=== PATIENT | female | born 1955 | race Caucasian/White ===

== ENCOUNTER → 2017-06-11 | Outpatient (CLI) | payer MEDICAID, SELFPAY | PROVIDERS: Visit Provider Internal Medicine | DX: B18.2 Chronic viral hepatitis C (principal) | CPT/HCPCS: 76705 ==

== ENCOUNTER 2017-06-17 09:10 | Emergency (ER) | payer MEDICAID, SELFPAY | END 2017-06-17 12:27 | disposition home or self-care (01) | PROVIDERS: Emergency Provider Emergency Medicine; Family Provider Emergency Medicine; Visit Provider Emergency Medicine | DX: N13.30 Unspecified hydronephrosis (principal); F17.210 Nicotine dependence, cigarettes, uncomplicated; I10 Essential (primary) hypertension; E11.65 Type 2 diabetes mellitus with hyperglycemia; Z79.4 Long term (current) use of insulin; R56.9 Unspecified convulsions; J44.9 Chronic obstructive pulmonary disease, unspecified; Z79.899 Other long term (current) drug therapy; Z88.2 Allergy status to sulfonamides; Z88.6 Allergy status to analgesic agent | CPT/HCPCS: 74177; 80053; 80305; 81001; 85025; 96365; 96372; 96375; 99284; Q9967 ==

== ENCOUNTER 2017-06-22 10:03 | Observation (INO) | payer MEDICAID, SELFPAY ==
[2017-06-22 10:06] VITALS: BMI 33.6
--- NOTE | 2017-06-22 10:13 | XR_ITS ---
XR chest 2V CLINICAL INDICATION: ITS.REASON: chest pain ORDERING PHYSICIAN: Mimi Ortiz MD PATIENT AGE: 61 years COMPARISON: 12/27/2010 FINDINGS: Unremarkable cardiovascular structures. There is a right pericardial fat pad with increased density along right heart border. No lobar consolidation or collapse. There is a vague area of increased density in the right upper lobe overlying the first rib anteriorly and may be related to prominent rib in a may be confirmed with follow-up. Patchy area of infiltrate, fibrosis, or developing nodule also a consideration. No acute bony anomalies. IMPRESSION: 1. No definite acute finding. 2. Vague area of increased density in the right upper lobe overlying the first rib anteriorly and may be related to prominent rib end and may be confirmed with follow-up. Patchy area of infiltrate, fibrosis, or developing nodule also a consideration
[2017-06-22 10:17] VITALS: BP 203/91; RESP 18; TEMP 36.9; O2SAT 98; BMI 33.6
[2017-06-22 10:18] LABS: POC Glucose,Bedside 446 mg/dL
--- NOTE | 2017-06-22 10:28 | HMH.EDCP ---
ED Disposition Clinical Impression: Hypertensive urgency, Tobacco use, CAD (coronary artery disease), Diabetes 1.5, managed as type 1, Unstable angina pectoris Pneumonia Qualifiers: Laterality: right Lung location: upper lobe of lung Chest pain Qualifiers: Chest pain type: unspecified Qualified Code(s): R07.9 - Chest pain, unspecified Disposition: Still a Patient Condition on Discharge: Fair - Critical Care Critical Care Time: No Attestation: On , the high probability of a clinically significant, sudden or life threatening deterioration of the following system(s) required my full and direct attention, intervention and personal management. The time I documented below is in addition to time spent performing reported procedures but includes the following listed in this critical care notation. Vital system(s) involved:: Circulatory Failure, Central Nervous System, Metabolic Failure, Respiratory Failure, Renal Failure, Shock (Hemorrhage), Shock (Septic) Medical Decision Making Vital Signs: 06/22/17 10:17 Temperature 98.4 F Temperature Source Oral Respiratory Rate 18 Blood Pressure [203/] 203/91 Blood Pressure Mean [203/] 128 Blood Pressure Source [/] Automatic Cuff Blood Pressure Position [] Sitting 02 Sat by Pulse Oximetry 98 Oxygen Delivery Method Room Air - Lab Data Lab Results 06/22/17 10:08: POC Glucose 446 06/22/17 10:30: WBC 12.6 H, RBC 4.67, Hgb 13.9, Hct 40.9, MCV 87.7, MCH 29.8, MCHC 34.0, RDW 12.9, Plt Count 239, MPV 7.5, Neut % (Auto) 79.9, Lymph % (Auto) 15.5, [place] % (Auto) 2.9, Eos % (Auto) 1.4, Baso % (Auto) 0.3, Neut # (Auto) 10.1 H, Lymph # (Auto) 1.9, [place] # (Auto) 0.4, Eos # (Auto) 0.2, Baso # (Auto) 0.0 06/22/17 10:30: Sodium 133 L, Potassium 3.3 L, Chloride 97 L, Carbon Dioxide 25, Anion Gap 14.3, BUN 12, Creatinine 1.01, Estimated Creat Clear 87, Estimated GFR 56 L, Est GFR ( Amer) > 60, Glucose 395 H, Calcium 8.8, Total Bilirubin 0.2, AST 40 H, ALT 53, Alkaline Phosphatase 141 H, Total Creatine Kinase 173 H, CK-MB (CK-2) 2.4, CK-MB (CK-2) Rel Index 1.4, Troponin I < 0.02, Total Protein 7.4, Albumin 3.1 L, Globulin 4.3 H, Albumin/Globulin Ratio 0.7 L 06/22/17 10:31: D-Dimer 168 06/22/17 10:31: B-Natriuretic Peptide 5 Result diagrams: 06/22/17 10:30 06/22/17 10:30 Orders (Tests/Meds): ED MEDICATIONS Generic Name Dose Route Start Last Admin Trade Name Freq PRN Reason Stop Dose Admin Sodium Chloride 10 ml 06/22/17 10:24 Saline Flush 10ml Syringe IV 07/22/17 10:23 NEEDED PRN Maintain IV Site Discontinued Medications Generic Name Dose Route Start Last Admin Trade Name Freq PRN Reason Stop Dose Admin Aspirin 324 mg 06/22/17 10:08 Aspirin 81mg Chewable Tablet PO 06/22/17 10:09 ONCE ONE Aspirin 324 mg 06/22/17 10:52 06/22/17 11:04 Aspirin 81mg Chewable Tablet PO 06/22/17 10:53 324 mg ONCE ONE Administration Ceftriaxone Sodium 1 gm/ 50 mls @ 100 mls/hr 06/22/17 11:44 06/22/17 12:05 Sodium Chloride IV 06/22/17 12:13 100 mls/hr ONCE ONE Administration Nitroglycerin 0.4 mg 06/22/17 10:08 Nitrostat 0.4mg Sl Tablet SL 06/23/17 10:13 Q5MINP PRN Chest Pain Nitroglycerin 1 gm 06/22/17 10:26 06/22/17 11:07 Nitroglycerin 1 Inch Oint Udp TD 06/22/17 10:27 1 gm ONCE ONE Administration Sodium Chloride 0 ml 06/22/17 10:28 06/22/17 11:06 Sod Chloride 0.9% 1000ml Bag IV 06/22/17 10:29 1,000 ml BOLUS ONE Administration ORDERS Category Date Time Status ECG Request by /Reginald Stat Y 06/22/17 10:08 Ordered ECG Request by /Reginald Stat Y 06/22/17 10:13 Stop Req - Radiology Data #1 Image Reviewed: Yes I have reviewed radiologist's interpretation Preliminary Findings: Abnormal (RUL mass vs infiltrates, i gave her a copy for follow up and called her pcp Dr. Lynne. ) - ECG Data Tracing #1 NSR 98/minutes, base line artifact, poor r wave progres
--- NOTE | 2017-06-22 10:31 | ED_ITS ---
ED Disposition Clinical Impression: Hypertensive urgency, Tobacco use, CAD (coronary artery disease), Diabetes 1.5 , managed as type 1, Unstable angina pectoris Pneumonia Qualifiers: Laterality: right Lung location: upper lobe of lung Chest pain Qualifiers: Chest pain type: unspecified Qualified Code(s): R07.9 - Chest pain, unspecified Disposition: Still a Patient Condition on Discharge: Fair - Critical Care Critical Care Time: No Attestation: On , the high probability of a clinically significant, sudden or life threatening deterioration of the following system(s) required my full and direct attention, intervention and personal management. The time I documented below is in addition to time spent performing reported procedures but includes the following listed in this critical care notation. Vital system(s) involved:: Circulatory Failure, Central Nervous System, Metabolic Failure, Respiratory Failure, Renal Failure, Shock (Hemorrhage), Shock (Septic) Medical Decision Making Vital Signs: 06/22/17 10:17 Temperature 98.4 F Temperature Source Oral Respiratory Rate 18 Blood Pressure [203/] 203/91 Blood Pressure Mean [203/] 128 Blood Pressure Source [/] Automatic Cuff Blood Pressure Position [] Sitting 02 Sat by Pulse Oximetry 98 Oxygen Delivery Method Room Air - Lab Data Lab Results 06/22/17 10:08: POC Glucose 446 06/22/17 10:30: WBC 12.6 H, RBC 4.67, Hgb 13.9, Hct 40.9, MCV 87.7, MCH 29.8, MCHC 34.0, RDW 12.9, Plt Count 239, MPV 7.5, Neut % (Auto) 79.9, Lymph % (Auto) 15.5, [place] % (Auto) 2.9, Eos % (Auto) 1.4, Baso % (Auto) 0.3, Neut # (Auto) 10.1 H, Lymph # (Auto) 1.9, [place] # (Auto) 0.4, Eos # (Auto) 0.2, Baso # (Auto) 0.0 06/22/17 10:30: Sodium 133 L, Potassium 3.3 L, Chloride 97 L, Carbon Dioxide 25 , Anion Gap 14.3, BUN 12, Creatinine 1.01, Estimated Creat Clear 87, Estimated GFR 56 L, Est GFR ( Amer) > 60, Glucose 395 H, Calcium 8.8, Total Bilirubin 0.2, AST 40 H, ALT 53, Alkaline Phosphatase 141 H, Total Creatine Kinase 173 H, CK-MB (CK-2) 2.4, CK-MB (CK-2) Rel Index 1.4, Troponin I < 0.02, Total Protein 7.4, Albumin 3.1 L, Globulin 4.3 H, Albumin/Globulin Ratio 0.7 L 06/22/17 10:31: D-Dimer 168 06/22/17 10:31: B-Natriuretic Peptide 5 Result diagrams: 06/22/17 10:30 06/22/17 10:30 Orders (Tests/Meds): ED MEDICATIONS Generic Name Dose Route Start Last Admin Trade Name Freq PRN Reason Stop Dose Admin Sodium Chloride 10 ml 06/22/17 10:24 Saline Flush 10ml Syringe IV 07/22/17 10:23 NEEDED PRN Maintain IV Site Discontinued Medications Generic Name Dose Route Start Last Admin Trade Name Freq PRN Reason Stop Dose Admin Aspirin 324 mg 06/22/17 10:08 Aspirin 81mg Chewable Tablet PO 06/22/17 10:09 ONCE ONE Aspirin 324 mg 06/22/17 10:52 06/22/17 11:04 Aspirin 81mg Chewable Tablet PO 06/22/17 10:53 324 mg ONCE ONE Administration Ceftriaxone Sodium 1 gm/ 50 mls @ 100 mls/hr 06/22/17 11:44 06/22/17 12:05 Sodium Chloride IV 06/22/17 12:13 100 mls/hr ONCE ONE Administration Nitroglycerin 0.4 mg 06/22/17 10:08 Nitrostat 0.4mg Sl Tablet SL 06/23/17 10:13 Q5MINP PRN Chest Pain Nitroglycerin 1 gm 06/22/17 10:26 06/22/17 11:07 Nitroglycerin 1 Inch Oint Udp
[2017-06-22 10:41] LABS: Basophils % 0.3 % (0.1-2.0); Eosinophils # 0.2 K/mm3 (0.0-0.4); Eosinophils % 1.4 % (0.1-12.0); Hematocrit 40.9 % (37.0-47.0); Hemoglobin 13.9 g/dL (12.2-16.2); Lymphocytes # 1.9 K/mm3 (0.7-4.5); Lymphocytes % 15.5 K/mm3 (10-50); Mean Corpuscular Hemoglobin 29.8 pg (27.0-31.2); Mean Corpuscular Volume 87.7 fl (81-99); Mean Platelet Volume 7.5 fl (7.4-10.4); Monocytes # 0.4 K/mm3 (0.1-1.0); Monocytes % 2.9 % (1.7-9.3); Neutrophils # 10.1 K/mm3 (1.8-7.8); Neutrophils % 79.9 % (37.0-80.0); Platelet Count 239 K/mm3 (142-424); Red Blood Count 4.67 M/mm3 (4.20-5.40); Red Cell Distribution Width 12.9 % (11.5-17.5); White Blood Count 12.6 K/mm3 (4.8-10.8)
[2017-06-22 11:14] LABS: Alanine Aminotransferase 53 U/L (12-78); Albumin Level 3.1 gm/dL (3.4-5.0); Albumin/Globulin Ratio 0.7 (1.1-1.8); Alkaline Phosphatase 141 U/L (46-116); Anion Gap 14.3 mEq/L (5-15); Aspartate Amino Transferase 40 U/L (15-37); Bilirubin,Total 0.2 mg/dL (0.2-1.0); Blood Urea Nitrogen 12 mg/dL (7-18); CKMB Relative Index 1.4 U/L (0-4.0); Calcium 8.8 mg/dL (8.5-10.1); Carbon Dioxide 25 mmol/L (21.0-32.0); Chloride 97 mmol/L (98-107); Creatine Kinase 173 U/L (26-140); Creatine Kinase MB 2.4 mg/ml (0.0-3.6); Creatinine Clearance Estimated 87 mg/ml (0-300); Creatinine,Serum 1.01 mg/dL (0.55-1.02); Estimated Glomerular Filt Rate 56 ml/min (>60); GFR (African American) > 60 ML/MIN (>60); Globulin 4.3 gm/dl (1.3-3.2); Glucose 395 mg/dL (74-106); Potassium 3.3 mmoL/L (3.5-5.1); Sodium 133 mmol/L (136-145); Total Protein,Serum 7.4 gm/dL (6.4-8.2); Troponin I < 0.02 ng/ml (0.00-0.06)
--- NOTE | 2017-06-22 11:42 | PC.NURSE ---
DR. ZIMMER PAGEHomar
[2017-06-22 11:45] LABS: D-Dimer 168 (0-400)
[2017-06-22 12:30] LABS: Lactic Acid 1.9 mmol/L (0.4-2.0)
--- NOTE | 2017-06-22 12:45 | PC.NURSE ---
PT CONTINUES TO ASK FOR PAIN MEDICATION. RECEIVED ASA EARLIER FOR COMPLAINTS OF CHEST DISCOMFORT. PROVIDER INDICATED NO NEW ORDERS.
--- NOTE | 2017-06-22 13:53 | PC.NURSE ---
PT CONTINUES TO REQUEST PAIN MEDICATION. MD IS AWARE. NO NEW ORDERS
[2017-06-22 13:54] VITALS: BP 135/95; PULSE 85; RESP 20; O2SAT 99
--- NOTE | 2017-06-22 14:00 | PC.NURSE ---
WENT IN TO GIVE PT TYLENOL AND SHE REFUSED SAYING SHE COULD NOT TAKE IT. OFFERED PATIENT IBUPROFEN AND SHE ADVISED SHE WASN'T ABLE TO TAKE THAT EITHER.; MD NOTIFIED, NO NEW ORDERS GIVEN AT THIS TIME.
[2017-06-22 14:47] VITALS: BP 156/93; PULSE 74; RESP 20; O2SAT 98
--- NOTE | 2017-06-22 17:20 | PC.NURSE ---
called and checked bed status. still holding at this time, ordered dinner tray for pt
[2017-06-22 18:51] VITALS: BP 142/95; PULSE 102
[2017-06-22 20:07] LABS: Troponin I < 0.02 ng/ml (0.00-0.06)
[2017-06-22 20:24] VITALS: BP 145/77; PULSE 86; RESP 20; TEMP 36.7; O2SAT 100; BMI 35.2
[2017-06-22 20:40] VITALS: PULSE 74; RESP 16; O2SAT 100
[2017-06-22 20:43] VITALS: BMI 35.2
[2017-06-23] VITALS (24 sets, daily range): BP systolic 124–148; BP diastolic 58–96; PULSE 66–90; RESP 16–20; TEMP 36.4–36.8; O2SAT 91–100; BMI 34.9
--- NOTE | 2017-06-23 | IR_ITS ---
CARDIAC CATHETERIZATION DATE OF CATHETERIZATION:06/23/2017 3:10 PM PROCEDURES: 1. Left heart catheterization 2. Left ventriculogram 3. Selective coronary angiogram INDICATION FOR TEST: 1. Unstable angina 2. Risk factors for coronary artery disease Informed consent was obtained prior to the procedure. COMPLICATIONS: None ESTIMATED BLOOD LOSS: Less than 10 ml. TECHNIQUE: One percent lidocaine used to anesthetize the right anterior aspect of the wrist. The right radial artery was accessed via the Seldinger technique. A 6 [place] sheath was placed in the right radial artery. 2.5 mg of verapamil, 800 mcg of nitroglycerin and 5000 U Heparin were given through the arterial sheath. The trap catheter was also used to perform left heart catheterization and left ventriculography. At the end of the procedure the patient was transferred to the post-op holding area in stable condition for arterial sheath removal. ANGIOGRAPHIC RESULTS: 1. The left main artery normal 2. The left anterior descending artery has mild proximal 10-20% stenoses with mid vessel 10% stenoses 3. The circumflex artery is a nondominant vessel and has mild 10-20% stenoses in the mid segment and distal second obtuse marginal artery 4. The right coronary artery is a dominant vessel and has mid vessel 20% and distal 20% stenoses 5. The CERDA ventriculogram reveals normal 65% 6. The left ventricular end-diastolic pressure 10 to 15 mmHg IMPRESSION: 1. Mild nonobstructive coronary artery disease as described above 2. Normal ejection fraction 3. Normal to slightly elevated left ventricular end-diastolic pressure PLAN: 1. Medical management 2. Avoidance of tobacco products
[2017-06-23 03:05] LABS: Troponin I < 0.02 ng/ml (0.00-0.06)
--- NOTE | 2017-06-23 03:45 | PC.NURSE ---
PT STABLE THROUGHOUT THE NIGHT. REPORTS CONTINUED INTERMITTENT CHEST PAIN. SLEEPS MOST OF SHIFT. PT PLACED NPO IN CASE OF CARDIOLOGY CONSULT IN AM.
--- NOTE | 2017-06-23 06:02 | CA_ITS ---
PROCEDURE: 2-D M-mode and color Doppler study INDICATIONS FOR THE TEST: Chest pain+ COPD Heart Murmur Tobacco Smoking+ Palpitations+ Fatigue Syncope Edema Hypertension+Diabetes Mellitus Rheumatic Fever SOB+METZGER Obesity Hyperlipidemia Family History HD Additional History PATIENT INFORMATION HEIGHT: 65 WEIGHT:202 GENDER: Female B/P: 2-D/M-MODE INTERPRETATION: 2-D MEASUREMENTS OBSERVED VALUES IN CMS Right Ventricular Dimension (RVDd) 1.8 Interventricular Septum (Thickness)(IVsd) 0.9 Left Ventricular Internal Dimensions(LVIDd) 4.8 Left Ventricular Posterior Wall (Thickness)(LVPWd) 1.0 Aortic Root 3.2 Aortic Cusp Separation 2.1 Left Atrial Dimensions (LAD) 4.4 2D 1. Left atrium is mildly enlarged, left ventricle is normal size, there is mild concentric left ventricular hypertrophy, visually estimated ejection fraction 55% with no obvious regional wall motion abnormality. 2. The right atrium and right ventricle are normal size and contractility. 3. The aortic valve is minimally thickened and fibrosed. 4. The mitral and tricuspid valve are structurally normal. 5. The pulmonic valve is poorly visualized. 6. No significant pericardial effusion noted. DOPPLER INTERROGATION: Doppler interrogation of the aortic, mitral and tricuspid valvular presence of mild mitral and tricuspid regurgitation, tricuspid regurgitant jet velocity is insufficient for calculation of the right ventricular systolic pressure, grade 1 diastolic dysfunction seen with tissue Doppler evidence of raised left atrial pressure. CONCLUSION: 1. Mildly enlarged left atrium, normal left ventricular size, mild concentric left ventricular hypertrophy, visually estimated ejection fraction 55% with no obvious regional wall motion abnormality. Grade 1 diastolic dysfunction seen with tissue Doppler evidence of raised left atrial pressure. 2. Mild mitral and tricuspid regurgitation. 3. No significant pericardial effusion noted.
[2017-06-23 07:33] LABS: POC Glucose,Bedside 186 mg/dL
--- NOTE | 2017-06-23 08:22 | P.CONPHA_ITS ---
[facility] Pharmacy VTE Monitoring - Patient Demographics Admission date: 06/22/17 Report Date: 06/23/17 Time: 08:22 Allergies/Adverse Reactions: codeine [CODEINE] Allergy (Unknown, Verified 06/22/17 10:05) Sulfa (Sulfonamide Antibiotics) [SULFA (SULFONAMIDE ANTIBIOTICS)] Allergy ( Unknown, Verified 06/22/17 10:05) Height: 1.63 m Weight: 92.986 kg Patient Problems: Current Active Problems Pneumonia (Acute) Hypertensive urgency (Acute) Chest pain (Acute) Tobacco use (Acute) CAD (coronary artery disease) (Acute) Diabetes 1.5, managed as type 1 (Acute) Unstable angina pectoris (Acute) - VTE Risk Labs: VTE Related Lab Results Hgb 13.9 g/dL (12.2-16.2) 06/22/17 10:30 Hct 40.9 % (37.0-47.0) 06/22/17 10:30 Plt Count 239 K/mm3 (142-424) 06/22/17 10:30 BUN 12 mg/dL (7-18) 06/22/17 10:30 Creatinine 1.01 mg/dL (0.55-1.02) 06/22/17 10:30 Estimated Creat Clear 87 mg/ml (0-300) 06/22/17 10:30 Clinical Trial Participant: No - Prophylaxis Types of VTE Prophylaxis: TEDS Knee High
[2017-06-23 08:54] LABS: Chol/HDL Ratio 3.7 (1-3.5); Cholesterol 140 mg/dL (140-200); HDL Cholesterol 38 mg/dL (29-89); LDL Cholesterol 78 mg/dL (0-130); Triglycerides 122 mg/dL (30-200); VLDL Cholesterol 24 mg/dL (0-40)
--- NOTE | 2017-06-23 09:39 | HMH.HP ---
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 FEMUR RIGHT LEG FX, RIBS FX) - *Social History Educational Level: Attended Grade School Smoking Status: Current every day smoker Tobacco Type: cigarettes # Packs/Day (cigarettes): 1 #Yrs smoked (if former smoker): 50 Alcohol Intake: never Occupational Status: disabled Household Members: other - Psychiatric History Expresses thoughts of harming self/others: None Suicide Plan Description: No Plan *Family Hx:: Asthma, Cancer, Diabetes, Heart Attack, Hyperlipidemia, Hypertension, Kidney Disease, Stroke, Thyroid Disorder Review of Systems - Review of Systems Review of systems:: pertinent systems reviewed and negative unless documented below - Constitutional Reports fever(s), Reports lack of energy, Reports malaise - Eyes Denies change in vision - *Respiratory Reports cough, Reports shortness of breath - *Gastrointestinal Reports nausea, Denies coffee ground vomit - *Musculoskeletal Reports joint pain - Integumentary/Breasts Reports rash - *Neurologic Reports dizziness, Denies seizure-like activity Meds Home Medications Medication Instructions Recorded Confirmed Type Amlodipine Besylate [Norvasc 5mg 5 mg PO DAILY 06/22/17 06/22/17 History tablet] Cyclobenzaprine HCl 10 mg PO Q8HP PRN 06/22/17 06/22/17 History [Cyclobenzaprine 10mg Tab] Insulin Aspart [Novolog Flexpen] 8 units SQ TID 06/22/17 06/22/17 History Insulin Glargine,Hum.rec.anlog 15 unit SQ HS 06/22/17 06/22/17 History [Basaglar Kwikpen U-100] Loratadine [Claritin 10mg Tablet] 10 mg PO DAILY 06/22/17 06/22/17 History Oxycodone HCl [Oxycodone (IR) 5mg 5 mg PO DAILY 06/22/17 06/22/17 History Cap] glipiZIDE [Glucotrol] 5 mg PO BID 06/22/17 06/22/17 History hydroCHLOROthiazide [HCTZ 25mg 25 mg PO DAILY 06/22/17 06/22/17 History tab] Allergies Allergy/AdvReac Type Severity Reaction Status Date / Time codeine [CODEINE] Allergy Unknown Verified 06/22/17 10:05 Sulfa (Sulfonamide Allergy Unknown Verified 06/22/17 10:05 Antibiotics) [SULFA (SULFONAMIDE ANTIBIOTICS)] Exam Vital signs and Labs for Last 24 Hours: Temp Pulse Resp BP Pulse Ox 98.2 F 88 18 145/73 94 L 06/23/17 04:29 06/23/17 06:00 06/23/17 04:29 06/23/17 04:29 06/23/17 04:29 Cardiac Enzymes 06/22/17 06/23/17 Range/Units 19:45 02:30 Troponin I < 0.02 < 0.02 (0.00-0.06) ng/ml I & O for Last 24 hours: Intake & Output 06/20/17 06/21/17 06/22/17 06/23/17 11:59 11:59 11:59 11:59 Output Total 600 / 600 Balance -600 / -600 no acute distress - *Routine HEENT Exam Head: Present: normocephalic Eye: Present: PERRL ENT: Present: mucous membranes dry - *Routine Neck Exam Present: supple. Absent: JVD - *Routine Respiratory Exam Present: decreased breath sounds. Absent: respiratory distress - *Routine Cardiovascular Exam Present: RRR, murmur, S4 - *Routine Abdominal Exam Present: soft - *Routine Extremities Exam Absent: Kostas's sign - *Routine Skin Exam Present: intact - *Routine Neurological Exam Present: alert, oriented X3, CN II-XII intact. Absent: sensory deficit, motor deficit - Routine Psychiatric Exam Present: normal affect H&P: Result - Labs Labs: Cardiac Enzymes 06/22/17 06/23/17 Range/Units 19:45 02:30 Troponin I < 0.02 < 0.02 (0.00-0.06) ng/ml Assessment and Plan (1) Chest pain Current visit: Yes Status: Acute
--- NOTE | 2017-06-23 09:43 | P.HP_ITS ---
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 FEMUR RIGHT LEG FX, RIBS FX) - *Social History Educational Level: Attended Grade School Smoking Status: Current every day smoker Tobacco Type: cigarettes # Packs/Day (cigarettes): 1 #Yrs smoked (if former smoker): 50 Alcohol Intake: never Occupational Status: disabled Household Members: other - Psychiatric History Expresses thoughts of harming self/others: None Suicide Plan Description: No Plan *Family Hx:: Asthma, Cancer, Diabetes, Heart Attack, Hyperlipidemia, Hypertension, Kidney Disease, Stroke, Thyroid Disorder Review of Systems - Review of Systems Review of systems:: pertinent systems reviewed and negative unless documented below - Constitutional Reports fever(s), Reports lack of energy, Reports malaise - Eyes Denies change in vision - *Respiratory Reports cough, Reports shortness of breath - *Gastrointestinal Reports nausea, Denies coffee ground vomit - *Musculoskeletal Reports joint pain - Integumentary/Breasts Reports rash - *Neurologic Reports dizziness, Denies seizure-like activity Meds Home Medications Medication Instructions Recorded Confirmed Type Amlodipine Besylate [Norvasc 5mg 5 mg PO DAILY 06/22/17 06/22/17 History tablet] Cyclobenzaprine HCl 10 mg PO Q8HP PRN 06/22/17 06/22/17 History [Cyclobenzaprine 10mg Tab] Insulin Aspart [Novolog Flexpen] 8 units SQ TID 06/22/17 06/22/17 History Insulin Glargine,Hum.rec.anlog 15 unit SQ HS 06/22/17 06/22/17 History [Basaglar Kwikpen U-100] Loratadine [Claritin 10mg Tablet] 10 mg PO DAILY 06/22/17 06/22/17 History Oxycodone HCl [Oxycodone (IR) 5mg 5 mg PO DAILY 06/22/17 06/22/17 History Cap] glipiZIDE [Glucotrol] 5 mg PO BID 06/22/17 06/22/17 History hydroCHLOROthiazide [HCTZ 25mg 25 mg PO DAILY 06/22/17 06/22/17 History tab] Allergies Allergy/AdvReac Type Severity Reaction Status Date / Time codeine [CODEINE] Allergy Unknown Verified 06/22/17 10:05 Sulfa (Sulfonamide Allergy Unknown Verified 06/22/17 10:05 Antibiotics) [SULFA (SULFONAMIDE ANTIBIOTICS)] Exam Vital signs and Labs for Last 24 Hours: Temp Pulse Resp BP Pulse Ox 98.2 F 88 18 145/73 94 L 06/23/17 04:29 06/23/17 06:00 06/23/17 04:29 06/23/17 04:29 06/23/17 04:29 Cardiac Enzymes 06/22/17 06/23/17 Range/Units 19:45 02:30 Troponin I < 0.02 < 0.02 (0.00-0.06) ng/ml I & O for Last 24 hours: Intake & Output 06/20/17 06/21/17 06/22/17 06/23/17 11:59 11:59 11:59 11:59 Output Total 600 / 600 Balance -600 / -600 no acute distress - *Routine HEENT Exam Head: Present: normocephalic Eye: Present: PERRL ENT: Present: mucous membranes dry - *Routine N
--- NOTE | 2017-06-23 10:17 | HMH.CARDCON2 ---
History of Present Illness Consult date: 06/23/17 Requesting physician: Kobe Dyer Consult reason: chest pain Chief complaint: chest pain History of present illness: 61 yo WF with DM since age 8, >50 pack year tobacco use and HTN admitted for chest pain that started at rest. 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 The symptoms yesterday were worse and concerned her to the point of prompting ER visit. She was kept overnight, Troponins have returned normal and Cardiology consulted for evaluation. Review of Systems - *Cardiovascular Reports chest pain, Reports chest pain at rest, Reports chest pain with activity, Reports shortness of breath with activity - *Neurologic Reports dizziness, Denies seizure-like activity [facility] History Medical History: Reports:: Cancer (CERVICAL), Diabetes Mellitus Type 2 Denies:: MRSA Other Medical History: Reports: Arthritis Comment: Reportedly had a seizure many years ago without etiology. On no meds for prevention. Questionable [place] with subsequent cardiac cath, 2007, [place], [place] without need for intervention. Amputation: No Fractures: Yes (BILATERAL WRIST FX'S. FEMUR RIGHT LEG FX, RIBS FX) - *Social History Educational Level: Attended Grade School Smoking Status: Current every day smoker Tobacco Type: cigarettes # Packs/Day (cigarettes): 1 #Yrs smoked (if former smoker): 50 Alcohol Intake: never Occupational Status: disabled Household Members: other - Psychiatric History Expresses thoughts of harming self/others: None Suicide Plan Description: No Plan *Family Hx:: Asthma, Cancer, Diabetes, Heart Attack, Hyperlipidemia, Hypertension, Kidney Disease, Stroke, Thyroid Disorder Meds Home Medications Medication Instructions Recorded Confirmed Type Amlodipine Besylate [Norvasc 5mg 5 mg PO DAILY 06/22/17 06/22/17 History tablet] Cyclobenzaprine HCl 10 mg PO Q8HP PRN 06/22/17 06/22/17 History [Cyclobenzaprine 10mg Tab] Insulin Aspart [Novolog Flexpen] 8 units SQ TID 06/22/17 06/22/17 History Insulin Glargine,Hum.rec.anlog 15 unit SQ HS 06/22/17 06/22/17 History [Basaglar Kwikpen U-100] Loratadine [Claritin 10mg Tablet] 10 mg PO DAILY 06/22/17 06/22/17 History Oxycodone HCl [Oxycodone (IR) 5mg 5 mg PO DAILY 06/22/17 06/22/17 History Cap] glipiZIDE [Glucotrol] 5 mg PO BID 06/22/17 06/22/17 History hydroCHLOROthiazide [HCTZ 25mg 25 mg PO DAILY 06/22/17 06/22/17 History tab] Allergies Allergy/AdvReac Type Severity Reaction Status Date / Time codeine [CODEINE] Allergy Unknown Verified 06/22/17 10:05 Sulfa (Sulfonamide Allergy Unknown Verified 06/22/17 10:05 Antibiotics) [SULFA (SULFONAMIDE ANTIBIOTICS)] Exam Vital signs and Labs for Last 24 Hours: Temp Pulse Resp BP Pulse Ox 98.2 F 88 18 145/73 94 L 06/23/17 04:29 06/23/17 06:00 06/23/17 04:29 06/23/17 04:29 06/23/17 04:29 Cardiac Enzymes 06/22/17 06/23/17 Range/Units 19:45 02:30 Troponin I < 0.02 < 0.02 (0.00-0.06) ng/ml I & O for Last 24 hours: Intake & Output 06/20/17 06/21/17 06/22/17 06/23/17 11:59 11:59 11:59 11:59 Output Total 600 / 600 Balance -600 / -600 - *Routine Neck Exam Absent: JVD, carotid bruit - *Routine Respiratory Exam Present: decreased breath sounds. Absent: rales, rhonchi, wheezes - *Routine Cardiovascular Exam Present: RRR, murmur - *Routine Extremities Exam Present: pulses intact - *Routine Neurological Exam Present: alert, oriented X3, vision grossly intact, hearing grossly intact Results 06/22/17 10:30 06/22/17 10:30 Cardiac Enzymes 06/22/17 06/23/17 Range/Units 19:45 02:30 Troponin I < 0.02 < 0.02 (0.00-0.06) ng/ml Lipids 06/23/17 Range/Units 05:35 Triglycerides 122 (30-200) mg/dL Cholesterol 140 (140-200) mg/dL LDL Cholesterol 78 (0-130) mg/dL HDL Cholest
--- NOTE | 2017-06-23 10:21 | P.CONS_ITS ---
History of Present Illness Consult date: 06/23/17 Requesting physician: Kobe Dyer Consult reason: chest pain Chief complaint: chest pain History of present illness: 61 yo WF with DM since age 8, >50 pack year tobacco use and HTN admitted for chest pain that started at rest. 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 The symptoms yesterday were worse and concerned her to the point of prompting ER visit. She was kept overnight, Troponins have returned normal and Cardiology consulted for evaluation. Review of Systems - *Cardiovascular Reports chest pain, Reports chest pain at rest, Reports chest pain with activity , Reports shortness of breath with activity - *Neurologic Reports dizziness, Denies seizure-like activity [facility] History Medical History: Reports:: Cancer (CERVICAL), Diabetes Mellitus Type 2 Denies:: MRSA Other Medical History: Reports: Arthritis Comment: Reportedly had a seizure many years ago without etiology. On no meds for prevention. Questionable [place] with subsequent cardiac cath, 2007, [place], [place] without need for intervention. Amputation: No Fractures: Yes (BILATERAL WRIST FX'S. FEMUR RIGHT LEG FX, RIBS FX) - *Social History Educational Level: Attended Grade School Smoking Status: Current every day smoker Tobacco Type: cigarettes # Packs/Day (cigarettes): 1 #Yrs smoked (if former smoker): 50 Alcohol Intake: never Occupational Status: disabled Household Members: other - Psychiatric History Expresses thoughts of harming self/others: None Suicide Plan Description: No Plan *Family Hx:: Asthma, Cancer, Diabetes, Heart Attack, Hyperlipidemia, Hypertension, Kidney Disease, Stroke, Thyroid Disorder Meds Home Medications Medication Instructions Recorded Confirmed Type Amlodipine Besylate [Norvasc 5mg 5 mg PO DAILY 06/22/17 06/22/17 History tablet] Cyclobenzaprine HCl 10 mg PO Q8HP PRN 06/22/17 06/22/17 History [Cyclobenzaprine 10mg Tab] Insulin Aspart [Novolog Flexpen] 8 units SQ TID 06/22/17 06/22/17 History Insulin Glargine,Hum.rec.anlog 15 unit SQ HS 06/22/17 06/22/17 History [Basaglar Kwikpen U-100] Loratadine [Claritin 10mg Tablet] 10 mg PO DAILY 06/22/17 06/22/17 History Oxycodone HCl [Oxycodone (IR) 5mg 5 mg PO DAILY 06/22/17 06/22/17 History Cap] glipiZIDE [Glucotrol] 5 mg PO BID 06/22/17 06/22/17 History hydroCHLOROthiazide [HCTZ 25mg 25 mg PO DAILY 06/22/17 06/22/17 History tab] Allergies Allergy/AdvReac Type Severity Reaction Status Date / Time codeine [CODEINE] Allergy Unknown Verified 06/22/17 10:05 Sulfa (Sulfonamide Allergy Unknown Verified 06/22/17 10:05 Antibiotics) [SULFA (SULFONAMIDE ANTIBIOTICS)] Exam Vital signs and Labs for Last 24 Hours: Temp Pulse Resp BP Pulse Ox 98.2 F 88 18 145/73 94 L 06/23/17 04:29 06/23/17 06:00 06/23/17 04:29 06/23/17 04:29 06/23/17 04:29 Cardiac Enzymes 06/22/17 06/23/17 Range/Units 19:45 02:30 Troponin I < 0.02 < 0.02 (0.00-0.06) ng/ml I & O for Last 24 hours: Intake & Output 06/20/17 06/21/17 06/22/17 06/23/17 11:59 11:59 11:59 11:59 Output Total 600 / 600 Balance -600 / -600 - *Routine Neck E
--- NOTE | 2017-06-23 15:09 | CARE MANAGER ---
Magalis Miles was admitted (OBS) with a diagnosis chest pain. Her treatment plan will include IV fluids and investigative studies. CM staff will follow and assist.
--- NOTE | 2017-06-23 16:07 | SUR.PREOP ---
1430-patient brought down from 2nd floor via wheelchair. vss, pulses 2+, allens test a. Patient taken to lab.
[2017-06-23 18:25] LABS: POC Glucose,Bedside 192 mg/dL
[2017-06-23 18:25] LABS: POC Glucose,Bedside 205 mg/dL
--- NOTE | 2017-06-23 18:59 | PC.NURSE ---
pt has had no changes from previous assessment. traclet was removed at 1830 and telfa and tegaderm was placed on site. no bleeding noted. dressing is c/d/i. iv is patent and no s/s of infliltration. v/s stable. will continue to monitor condition.
[2017-06-24] VITALS (7 sets, daily range): BP systolic 118–154; BP diastolic 53–83; PULSE 76–94; RESP 11–21; TEMP 36.7–36.9; O2SAT 98–100
--- NOTE | 2017-06-24 03:58 | PC.NURSE ---
PT HAS RESTED WELL THIS SHIFT. SHE C/O EARLIER IN SHIFT OF BACK PAIN. PT DENIES ANY CHEST PAIN THIS AM. V/S HAVE REMAINED STABLE. PT HAS REMAINED NSR ON TELEMETRY. SHE HAS AMBULATED TO [facility] THIS SHIFT. MEDICATION ADMINISTERED PER AUG. PHARMACY CONTACTED FOR ADMINISTRATION/ MIXING OF ANTIBIOTIC AZITHROMYCIN. NO OTHER CONCERNS AT THIS TIME. WILL CONTINUE TO MONITOR.
--- NOTE | 2017-06-24 05:45 | PC.NURSE ---
DRESSING TO (R) RADIAL CATH SITE IS C/D/I. 4X4 AND TEG[address]M IN PLACE. NO HEMATOMA NOTED
[2017-06-24 08:02] LABS: POC Glucose,Bedside 183 mg/dL
--- NOTE | 2017-06-24 08:12 | HMH.CARDPN2 ---
Subjective PN (PG) Date: 06/24/17 (n) Time: 08:00 Principal diagnosis: chest pain Interval history: Cardiac cath with no significant CAD. Pt with hypertensive readings during cath. Irbesartan added yesterday. No complaints. PN Exam ([facility] Own[facility]) Vital signs: Temp Pulse Resp BP Pulse Ox 98.2 F 88 21 124/57 99 06/24/17 04:00 06/24/17 05:50 06/24/17 04:00 06/24/17 04:00 06/24/17 05:50 - Constitutional no acute distress - Routine Respiratory Exam Present: CTA bilaterally - Routine Cardiovascular Exam Present: RRR A/P Progress Note ([facility] Owned) (1) Unstable angina pectoris Status: Acute Assessment and plan: Chest pain not related to CAD. Likely due to uncontrolled BP. No further chest pain with improved BP control. Stressed need to continue to control DM and to stop smoking. OK for discharge from cardiology standpoint. Follow up in office in 1-2 wks. Current Visit: Yes (2) Tobacco use Status: Chronic Current Visit: Yes (3) Hypertension Status: Acute Current Visit: Yes (4) Hypokalemia Status: Acute Current Visit: Yes (5) Diabetes 1.5, managed as type 1 Status: Acute Current Visit: Yes (6) Pneumonia Status: Acute Current Visit: Yes
--- NOTE | 2017-06-24 08:15 | P.PN_ITS ---
Subjective PN (PG) Date: 06/24/17 (n) Time: 08:00 Principal diagnosis: chest pain Interval history: Cardiac cath with no significant CAD. Pt with hypertensive readings during cath. Irbesartan added yesterday. No complaints. PN Exam ([facility]) Vital signs: Temp Pulse Resp BP Pulse Ox 98.2 F 88 21 124/57 99 06/24/17 04:00 06/24/17 05:50 06/24/17 04:00 06/24/17 04:00 06/24/17 05:50 - Constitutional no acute distress - Routine Respiratory Exam Present: CTA bilaterally - Routine Cardiovascular Exam Present: RRR A/P Progress Note ([facility]) (1) Unstable angina pectoris Status: Acute Assessment and plan: Chest pain not related to CAD. Likely due to uncontrolled BP. No further chest pain with improved BP control. Stressed need to continue to control DM and to stop smoking. OK for discharge from cardiology standpoint. Follow up in office in 1-2 wks. Current Visit: Yes (2) Tobacco use Status: Chronic Current Visit: Yes (3) Hypertension Status: Acute Current Visit: Yes (4) Hypokalemia Status: Acute Current Visit: Yes (5) Diabetes 1.5, managed as type 1 Status: Acute Current Visit: Yes (6) Pneumonia Status: Acute Current Visit: Yes
--- NOTE | 2017-06-24 08:46 | PC.NURSE ---
REPORT HANDED OFF TO SAVANAH ANGLIN @ [phone]
[2017-06-24 08:55] LABS: POC Glucose,Bedside 240 mg/dL
[2017-06-24 08:55] LABS: POC Glucose,Bedside 201 mg/dL
--- NOTE | 2017-06-24 09:02 | HMH.DCSUM ---
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 and was seen in the ed and felt to have cap and has chest pain with hx of cad with htn and dm and tob use - she was admitted for card eval Objective Vital signs: Temp Pulse Resp BP Pulse Ox 98.4 F 94 H 20 154/83 99 06/24/17 08:00 06/24/17 08:00 06/24/17 08:00 06/24/17 08:00 06/24/17 08:00 - *Routine HEENT Exam Head: Present: normocephalic Eye: Present: PERRL ENT: Present: mucous membranes moist - *Routine Neck Exam Present: supple, full ROM - *Routine Respiratory Exam Present: wheezes - *Routine Cardiovascular Exam Present: RRR, Normal S1, Normal S2 - *Routine Abdominal Exam Present: soft, normoactive bowel sounds - *Routine Extremities Exam Present: full ROM - Routine Back/Spine/Pelvis Exam Back/Spine: Present: full ROM - *Routine Neurological Exam Present: alert, oriented X3 Results Labs on day of discharge: Labs from last 24 hours 06/24/17 06/23/17 06/23/17 06:26 22:08 17:07 POC Glucose 201 240 205 06/23/17 06/22/17 12:05 20:39 POC Glucose 192 183 Preliminary micro results at discharge 06/22/17 13:00 Blood Culture - Preliminary Blood NO GROWTH AFTER 24 HOURS 06/22/17 12:00 Blood Culture - Preliminary Blood NO GROWTH AFTER 24 HOURS Meds Home Medications Medication Instructions Recorded Confirmed Type Amlodipine Besylate [Norvasc 5mg 5 mg PO DAILY 06/22/17 06/22/17 History tablet] Cyclobenzaprine HCl 10 mg PO Q8HP PRN 06/22/17 06/22/17 History [Cyclobenzaprine 10mg Tab] Insulin Aspart [Novolog Flexpen] 8 units SQ TID 06/22/17 06/22/17 History Insulin Glargine,Hum.rec.anlog 15 unit SQ HS 06/22/17 06/22/17 History [Basaglar Kwikpen U-100] Loratadine [Claritin 10mg Tablet] 10 mg PO DAILY 06/22/17 06/22/17 History Oxycodone HCl [Oxycodone (IR) 5mg 5 mg PO DAILY 06/22/17 06/22/17 History Cap] glipiZIDE [Glucotrol] 5 mg PO BID 06/22/17 06/22/17 History hydroCHLOROthiazide [HCTZ 25mg 25 mg PO DAILY 06/22/17 06/22/17 History tab] Allergies Allergy/AdvReac Type Severity Reaction Status Date / Time codeine [CODEINE] Allergy Unknown Verified 06/22/17 10:05 Sulfa (Sulfonamide Allergy Unknown Verified 06/22/17 10:05 Antibiotics) [SULFA (SULFONAMIDE ANTIBIOTICS)] Disposition Disposition: Home, Self-Care
--- NOTE | 2017-06-24 14:01 | PC.NURSE ---
PROVIDER PLACED DISCHARGE ORDER AND PT INFORMED OF THIS DURING MORNING MED PASS. WHILE TRYING TO PRINT DISCHARGE PACKET, NOTED MESSAGE THAT STATES MED REC NOT COMPLETED. CONTACTED [facility] TO MAKE SURE THAT IT WAS NOT A SYSTEM PROBLEM. INFORMED IT WAS NOT KNOWN TO BE A PROBLEM AND TO CONTACT THE MD. BONG DAVIDSON CONTACTED AND STATED SHE WOULD TRY TO FIX SAID PROBLEM. AT 1030 PT STATES THAT HER RIDE IS HERE AND WILL LEAVE HER IF SHE DOESN'T GO RIGHT NOW. MD CALLED AND STATED SHE WOULD TRY TO GET TO IT WHEN SHE COULD. PT MADE AWARE OF THE FACT MD WAS WORKING ON IT AND SAID SHE WAS LEAVING. PT LEFT WITHOUT DISCHARGE INSTRUCTIONS OR OTHER PAPERWORK. PT WOULD NOT STAY TO SIGN AMA FORM. NEWS WIRE PHOTO OPERATOR INFORMED. PROBLEM FIXED IN PAPERWORK PER H.DIANELYS AT 1200. PATIENT CALLED APOLOGIZING ABOUT LEAVING AND STS SHE WILL BE BACK LATER WITH HER RIDE TO FISH AND WILDLIFE BIOLOGIST PAPERWORK.
--- NOTE | 2017-06-24 17:18 | PC.NURSE ---
PATIENT ON THE FLOOR AT THIS TIME TO RECEIVE PAPERWORK. THIS RN WENT OVER DC INSTRUCTIONS WITH PATIENT. 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 PRESCRIPTIONS CALLED INTO [facility] FOR PT. PT HAS F/U WITH DR. ZIMMER ON 06-28-17.
--- NOTE | 2017-07-08 10:38 | PC.NURSE ---
post procedure call made, pt did not answer, voicemail left for pt to call hospital with any questions/concerns
== END 2017-06-24 10:40 | disposition home or self-care (01) ==
LOC: ER 11:36 → ICU 06-23 07:08
PROVIDERS: Internal Medicine; Admitting Provider Emergency Medicine; Emergency Provider Emergency Medicine; Family Provider Emergency Medicine; PCP Emergency Medicine; Visit Provider Emergency Medicine
DX: J18.9 Pneumonia, unspecified organism (principal); E11.9 Type 2 diabetes mellitus without complications; Z72.0 Tobacco use; I25.110 Atherosclerotic heart disease of native coronary artery with unstable angina pectoris; I10 Essential (primary) hypertension
CPT/HCPCS: 36415; 71046; 80053; 80061; 82550; 82553; 82962; 83605; 83880; 84484; 85025; 85378; 87040; 93005; 93306; 93458; 94640; 94761; 99152; 99284; C1725; C1769; G0378; J0456; J1644; Q9967

== ENCOUNTER → 2017-07-28 10:43 | Outpatient (REF) | payer MEDICAID, SELFPAY ==
[2017-07-28 15:05] LABS: Amphetamine/Metha Screen,Urine Negative ng/mL (<1000); Barbiturates Screen,Urine Negative ng/mL (<200); Benzodiazepines Screen,Urine Negative ng/mL (200); Cannabinoid Screen,Urine Negative ng/mL (<50); Cocaine Screen,Urine Negative ng/g (<300); Methadone Screen,Urine Negative ng/mL (<300); Opiate Screen,Urine Negative ng/mL (<300); Phencyclidine Screen,Urine Negative ng/mL (<25)
== END ==
LOC: LAB 10:43
PROVIDERS: Visit Provider Emergency Medicine
DX: Z79.899 Other long term (current) drug therapy (principal)
CPT/HCPCS: 80305

== ENCOUNTER 2017-08-10 08:35 | Day surgery (SDC) | payer MEDICAID, SELFPAY ==
[2017-08-06 14:40] VITALS: BMI 35.1
[2017-08-10] VITALS (19 sets, daily range): BP systolic 134–178; BP diastolic 64–109; PULSE 62–81; RESP 14–22; TEMP 36.2–36.9; O2SAT 94–99
--- NOTE | 2017-08-10 | FL_ITS ---
FL urethrocystogram retro CLINICAL INDICATION: ORDERING PHYSICIAN: Florentino Durham MD PATIENT AGE: 61 years COMPARISON: CT scan of 06/17/2017 FINDINGS: 2 images submitted with the C-arm show contrast in the right renal collecting system with mild dilatation of the renal pelvicalyceal system and proximal ureter. Distal ureters not visualized. Fluoroscopy time: 43 seconds IMPRESSION: Mild ectasia right renal collecting system. The distal ureter is not visualized
--- NOTE | 2017-08-10 10:40 | HMH.ANESCL ---
[facility] Anesthesia Checklist - Patient Identification Patient Identification: Arm Band - Structural Data Admitted From: Home Planned Operative Procedure/s: cystoscopy with retrograde pyelogram Consent for Planned Operative Procedure(s) Verified: Yes Verified Documents: Surgical Consent, History and Physical - NPO Status Verified Time NPO: 00:00 - Additional verifications Anesthesia Reactions: No - Airway Assessment C-Spine Mobility Assessed: Yes TMJ Mobility Assessed: Yes Dentition: Dentures-good fit (upper) - Neurological Assessment Level of Consciousness: Awake, Alert - Anesthesia Plan Anesthesia Risk discussed: Yes ASA Class: III Anesthesia Type: General [facility] Anesthesia HX I have reviewed the patient's past medical history: Yes Medical History: Reports:: Asthma, Cancer (CERVICAL), Diabetes Mellitus Type 2, Hypertension Denies:: Diabetes Mellitus Type 1, MRSA, Seizures Other Medical History: Reports: Arthritis, Other (Hep c, hx seizures). Denies: Blood Transfusion Reaction Other Surgeries: Yes: Colonoscopy, Hysterectomy-Total, Other (WRIST) Amputation: No Fractures: Yes (BILATERAL WRIST FX'S. FEMUR RIGHT LEG FX, RIBS FX) *Family Hx:: Asthma, Cancer, Diabetes, Heart Attack, Hyperlipidemia, Hypertension, Kidney Disease, Stroke, Thyroid Disorder
--- NOTE | 2017-08-10 10:42 | P.PN_ITS ---
[facility] Anesthesia Record Part II Discharge Time: 11:05 Destination: [facility] PACU nurse assessment reviewed?: Yes Patient Condition:: Good Anesthesia Complications:: None
--- NOTE | 2017-08-10 10:42 | P.PN_ITS ---
[facility] Anesthesia Record Part I Intake, IV Amount: 900 Estimated blood loss (mL): 0 Urine output (mL): 0 Blood Pressure: 146/73 SaO2: 96 Pulse Rate: 80 Respiratory Rate: 16 Temperature: 98.5 F Patient is:: Drowsy, Stable Stable to PACU at:: 10:35
--- NOTE | 2017-08-10 10:42 | HMH.ANESII ---
[facility] Anesthesia Record Part II Discharge Time: 11:05 Destination: [facility] PACU nurse assessment reviewed?: Yes Patient Condition:: Good Anesthesia Complications:: None
--- NOTE | 2017-08-10 11:32 | HMH.OPNOTE ---
Date of procedure: 08/10/17 Pre-op Diagnosis:: Chronic cystitis with right hydronephrosis Post-op diagnosis:: other (Without obstruction) Procedure performed:: Cystoscopy with right retrograde pyelogram Surgeon:: Florentino Durham MD PROOF LOAD MECHANIC:: Sidney Melendez Anesthesia: GETA Estimated blood loss (mL): 0 Clinical Note:: Patient is 61 years of age with recurrent urinary tract infections. She had a CT scan which showed some slight right hydronephrosis. She presents today for cystoscopy and right retrograde pyelogram. Started on therapy 3 days ago for diverticulitis. Operative findings:: Chronic trigonitis no evidence of ureteral obstruction Operative note:: After satisfactory general anesthesia she was carefully placed in the dorsolithotomy position. Genital area was prepped and draped in standard fashion. 22 Croatian cystoscope sheath introduced. Letter was inspected with both 30 and 70? lenses. No evidence of vesico-enteric fistula or trigone area she had chronic bullous edema. Ureteral orifice ease were not involved. No significant cystocele. Contrast was injected up the right side. Course and contour the right ureter was unremarkable. She did have slight dilation from the bladder to the calyceal system. There was however no points of obstruction. She emptied promptly without hesitation. Bladder was drained and cystoscope removed. Patient was awakened and transferred to the postop area in stable condition Condition: stable Disposition: PACU (Placed on doxycycline 100 mg twice daily for 1 month. She will follow-up in one month and likely we will place her on suppressive doxycycline nightly for at least an additional month) Complications:: None
--- NOTE | 2017-08-10 11:38 | P.OP_ITS ---
Date of procedure: 08/10/17 Pre-op Diagnosis:: Chronic cystitis with right hydronephrosis Post-op diagnosis:: other (Without obstruction) Procedure performed:: Cystoscopy with right retrograde pyelogram Surgeon:: Florentino Durham MD NEEDLE BAR MOLDER:: Sidney Melendez Anesthesia: GETA Estimated blood loss (mL): 0 Clinical Note:: Patient is 61 years of age with recurrent urinary tract infections. She had a CT scan which showed some slight right hydronephrosis. She presents today for cystoscopy and right retrograde pyelogram. Started on therapy 3 days ago for diverticulitis. Operative findings:: Chronic trigonitis no evidence of ureteral obstruction Operative note:: After satisfactory general anesthesia she was carefully placed in the dorsolithotomy position. Genital area was prepped and draped in standard fashion. 22 Pashto cystoscope sheath introduced. Letter was inspected with both 30 and 70? lenses. No evidence of vesico-enteric fistula or trigone area she had chronic bullous edema. Ureteral orifice ease were not involved. No significant cystocele. Contrast was injected up the right side. Course and contour the right ureter was unremarkable. She did have slight dilation from the bladder to the calyceal system. There was however no points of obstruction. She emptied promptly without hesitation. Bladder was drained and cystoscope removed. Patient was awakened and transferred to the postop area in stable condition Condition: stable Disposition: PACU (Placed on doxycycline 100 mg twice daily for 1 month. She will follow-up in one month and likely we will place her on suppressive doxycycline nightly for at least an additional month) Complications:: None
--- NOTE | 2017-08-10 15:45 | SUR.PHASEI ---
FSBS taken in PACU, result [id number]
[2017-08-19 15:00] LABS: POC Glucose,Bedside 236 mg/dL (70-110)
[2017-08-19 15:00] LABS: POC Glucose,Bedside 280 mg/dL (70-110)
== END 2017-08-10 12:35 | disposition home or self-care (01) ==
LOC: OR 08:36
PROVIDERS: Family Provider Emergency Medicine; PCP Emergency Medicine; Visit Provider Urology
PROC: 0TJB8ZZ Inspection of Bladder, Via Natural or Artificial Opening Endoscopic (ICD-10-PCS; CPT 52000; principal; 2017-08-10 10:00)
DX: N30.30 Trigonitis without hematuria (principal); N13.30 Unspecified hydronephrosis
CPT/HCPCS: 52005; 74450; 82962; 96374; J2270; J2405; Q9967

== ENCOUNTER 2017-08-18 17:24 | Emergency (ER) | payer MEDICAID, SELFPAY ==
[2017-08-18 18:32] VITALS: BP 137/98; PULSE 90; RESP 20; TEMP 37; O2SAT 94; BMI 35.1
--- NOTE | 2017-08-18 19:13 | HMH.EDUTC ---
[facility] [place] Disposition Clinical Impression: Nausea & vomiting Qualifiers: Vomiting type: unspecified Vomiting Intractability: unspecified Qualified Code(s): R11.2 - Nausea with vomiting, unspecified Disposition: Home, Self-Care Condition on Discharge: Good Instructions: DI for Nausea -- Adult, DI for Vomiting -- Adult Additional Instructions: ? Drink extra fluids with and between meals. If you have difficulty drinking, try very small amounts of water or suck on ice chips. ? Avoid fruit juices, as these do not replace minerals and can actually increase diarrhea. ? Children and adults can use sports drinks to replenish electrolytes. Younger children and infants should use products formulated for children, like oral rehydration solutions. ? Eat food in small amounts and let your stomach recover. ? Get lots of rest. You may feel tired or weak. ? Check with your doctor before taking medications or giving them to children. Never give aspirin to children or teenagers with a viral illness. This can cause James syndrome, a potentially life-threatening condition. Prescriptions: Ondansetron [Zofran 4mg ODT] 4 mg PO Q8H #20 tab.rapdis Referrals: Kobe Dyer MD [Primary Care Provider] - Time of Disposition: 19:24 Medical Decision Making - Medical Records Medical records reviewed: Yes: I reviewed the patient's medical records. Vital Signs: 08/18/17 18:32 08/18/17 19:16 Temperature 98.6 F 98.6 F Temperature Source Temporal Artery Scan Pulse Rate 90 Pulse Rate [Right] 90 Respiratory Rate 20 20 Blood Pressure 138/99 Blood Pressure [Right Arm] 137/98 Blood Pressure Mean [Right Arm] 111 Blood Pressure Source [Right Arm] Automatic Cuff Blood Pressure Position [Right Arm] Sitting 02 Sat by Pulse Oximetry 94 L Oxygen Delivery Method Room Air Orders (Tests/Meds): ED MEDICATIONS Discontinued Medications Generic Name Dose Route Start Last Admin Trade Name Freq PRN Reason Stop Dose Admin Ondansetron HCl 8 mg 08/18/17 19:20 Zofran 4mg/2ml Vial IM 08/18/17 19:21 ONCE ONE - Shine Inquiry Pt receiving controlled substance: No Shine was queried for this patient: No - Reevaluation(s) Time: :18 Reevaluation #1: Patient no distress state that she came in to get some phenergan or zofran to help with nausea State that she has had several eppisodes of vomiting today and having a hard time keeping her medication down so she came in to get something for nausea to help so she can take her daily medication. State that several of her grandchildren recently had the stomach bug and thinks she may have it now too Time: 19:22 Reevaluation #3: Patient given zofran IM will reassess to make sure that it is helping with nausea prior to dc home [facility] [place] HPI - General Stated complaint: Vomiting, cough Mode of Arrival: Ambulatory Source of Information: Patient Limitations: No Limitations Description of Symptoms (Recalled from Triage Doc. by RN): POSITIVE FLU LAST WEEK, COUGH, CONGESTION X4 DAYS HEENT Symptoms (Recalled from RN notes): Yes Resp Symptoms (Recalled from RN notes): Yes Skin Symptoms (Recalled from RN notes): No MS Symptoms (Recalled from RN notes): No Functional Status (Recalled from RN notes): N - History of Present Illness Provider Complaint: Patient state that she was seen about a month ago and had pneumonia, state that a few weeks ago she had the flu. States that now she thinks she may have a stomach Virus She has been having nausea and vomiting for the last couple of days State that she had phenergan at home and took one last night and it helped but she is out today and has vomited several times today so her daughter brought her in to see if she could get something to help with her upset stomach - Related Data Home Medications Medication Instructions Recorded Confirmed Amlodipine Besylate [Norvasc 5mg 5 mg PO DAILY 06/22/17 08/10/17 tablet] Insulin Aspart [Novolog Flexpen] 8
[2017-08-18 19:16] VITALS: BP 138/99; PULSE 90; RESP 20; TEMP 37
--- NOTE | 2017-08-18 19:16 | ED_ITS ---
[facility] [place] Disposition Clinical Impression: Nausea & vomiting Qualifiers: Vomiting type: unspecified Vomiting Intractability: unspecified Qualified Code( s): R11.2 - Nausea with vomiting, unspecified Disposition: Home, Self-Care Condition on Discharge: Good Instructions: DI for Nausea -- Adult, DI for Vomiting -- Adult Additional Instructions: ? Drink extra fluids with and between meals. If you have difficulty drinking, try very small amounts of water or suck on ice chips. ? Avoid fruit juices, as these do not replace minerals and can actually increase diarrhea. ? Children and adults can use sports drinks to replenish electrolytes. Younger children and infants should use products formulated for children, like oral rehydration solutions. ? Eat food in small amounts and let your stomach recover. ? Get lots of rest. You may feel tired or weak. ? Check with your doctor before taking medications or giving them to children. Never give aspirin to children or teenagers with a viral illness. This can cause Mango?s syndrome, a potentially life-threatening condition. Prescriptions: Ondansetron [Zofran 4mg ODT] 4 mg PO Q8H #20 tab.rapdis Referrals: Kobe Dyer MD [Primary Care Provider] - Time of Disposition: 19:24 Medical Decision Making - Medical Records Medical records reviewed: Yes: I reviewed the patient's medical records. Vital Signs: 08/18/17 18:32 08/18/17 19:16 Temperature 98.6 F 98.6 F Temperature Source Temporal Artery Scan Pulse Rate 90 Pulse Rate [Right] 90 Respiratory Rate 20 20 Blood Pressure 138/99 Blood Pressure [Right Arm] 137/98 Blood Pressure Mean [Right Arm] 111 Blood Pressure Source [Right Arm] Automatic Cuff Blood Pressure Position [Right Arm] Sitting 02 Sat by Pulse Oximetry 94 L Oxygen Delivery Method Room Air Orders (Tests/Meds): ED MEDICATIONS Discontinued Medications Generic Name Dose Route Start Last Admin Trade Name Freq PRN Reason Stop Dose Admin Ondansetron HCl 8 mg 08/18/17 19:20 Zofran 4mg/2ml Vial IM 08/18/17 19:21 ONCE ONE - Shine Inquiry Pt receiving controlled substance: No Shine was queried for this patient: No - Reevaluation(s) Time: :18 Reevaluation #1: Patient no distress state that she came in to get some phenergan or zofran to help with nausea State that she has had several eppisodes of vomiting today and having a hard time keeping her medication down so she came in to get something for nausea to help so she can take her daily medication. State that several of her grandchildren recently had the stomach bug and thinks she may have it now too Time: 19:22 Reevaluation #3: Patient given zofran IM will reassess to make sure that it is helping with nausea prior to dc home [facility] [place] HPI - General Stated complaint: Vomiting, cough Mode of Arrival: Ambulatory Source of Information: Patient Limitations: No Limitations Description of Symptoms (Recalled from Triage Doc. by RN): POSITIVE FLU LAST WEEK, COUGH, CONGESTION X4 DAYS HEENT Symptoms (Recalled from RN notes): Yes Resp Symptoms (Recalled from RN notes): Yes Skin Symptoms (Recalled from RN notes): No MS Symptoms (Recalled from RN notes): No Functional Status (Recalled from RN notes): N - History of Present Illness Provider Complaint: Patient state that she was seen about a month ago and had pneumon
== END 2017-08-18 19:26 | disposition home or self-care (01) ==
PROVIDERS: Emergency Provider Nurse Practitioner; Family Provider Emergency Medicine; PCP Emergency Medicine
DX: R11.2 Nausea with vomiting, unspecified (principal); R05 Cough; Z72.0 Tobacco use
CPT/HCPCS: 99202

== ENCOUNTER → 2017-08-31 08:34 | Outpatient (CLI) | payer MEDICAID, SELFPAY ==
--- NOTE | 2017-08-31 08:38 | MM_ITS ---
MM Dig screening mamm BI w/CAD CAD Screening ORDERING PHYSICIAN : Kobe Dyer MD PATIENT AGE: 62 years GENDER: Female COMPARISON: Previous mammograms: [place] November 2015, October INDICATION: Routine screening. No hormones. No new complaints. Family history. Sister with breast cancer? 17 years? Age TECHNIQUE: Standard CC and MLO images were obtained. R2 CAD reviewed. FINDINGS: minimal scattered fibroglandular elements. Both breast with overall over lower density breast. Mild asymmetry is again noted with density at the superior left breast again observed similar to previous study CAD computer review highlights no areas of concern RIGHT BREAST:. Stable appearance. Follow-up in one year stable small intramammary lymph node at the deep breast MLO view. Unchanged since prior studies dating back to 2010 LEFT BREAST:Stable asymmetric glandular density superior left breast. Follow-up in one year IMPRESSION: Stable bilateral mammogram with no significant new findings. Follow-up in one year BI-RADS Category: 1 Negative RECOMMENDED FOLLOW-UP: 1YR - 1 YEAR FOLLOW-UP (A letter has been sent to the patient regarding results of the study.)
--- NOTE | 2017-08-31 11:01 | XR_ITS ---
XR chest 2V HISTORY: ITS.REASON: COUGH ORDERING PHYSICIAN: Kobe Dyer MD PATIENT AGE: 61 years COMPARISON: 06/22/2017 FINDINGS: The cardiomediastinal silhouette and pulmonary vascularity are within normal limits. The lungs are clear without infiltrates, suspicious nodules, or pleural effusions. The nodular opacity previously identified somewhat less apparent likely related to slight difference in positioning. A discrete nodule is not identified. Fat pad noted on the right as before No acute bony abnormalities. IMPRESSION: No acute finding
== END ==
PROVIDERS: Family Provider Emergency Medicine; PCP Emergency Medicine; Visit Provider Emergency Medicine
DX: Z12.31 Encounter for screening mammogram for malignant neoplasm of breast (principal)
CPT/HCPCS: 71046; 77067

== ENCOUNTER → 2017-08-31 09:31 | Outpatient (POV) | payer MEDICAID, SELFPAY | PROVIDERS: Family Provider Emergency Medicine; PCP Emergency Medicine; Visit Provider Internal Medicine | DX: Z00.00 Encounter for general adult medical examination without abnormal findings (principal) ==

== ENCOUNTER → 2017-09-24 10:06 | Outpatient (REF) | payer MEDICAID, SELFPAY ==
[2017-09-24 18:58] LABS: Amphetamine/Metha Screen,Urine Negative ng/mL (<1000); Barbiturates Screen,Urine Negative ng/mL (<200); Benzodiazepines Screen,Urine Negative ng/mL (200); Cannabinoid Screen,Urine Negative ng/mL (<50); Cocaine Screen,Urine Negative ng/g (<300); Methadone Screen,Urine Negative ng/mL (<300); Opiate Screen,Urine Negative ng/mL (<300); Phencyclidine Screen,Urine Negative ng/mL (<25)
== END ==
LOC: LAB 10:06
PROVIDERS: Visit Provider Emergency Medicine
DX: Z79.899 Other long term (current) drug therapy (principal)
CPT/HCPCS: 80305

== ENCOUNTER → 2017-10-22 11:01 | Outpatient (REF) | payer MEDICAID, SELFPAY ==
[2017-10-22 14:14] LABS: Amphetamine/Metha Screen,Urine Negative ng/mL (<1000); Barbiturates Screen,Urine Negative ng/mL (<200); Benzodiazepines Screen,Urine Negative ng/mL (200); Cannabinoid Screen,Urine Negative ng/mL (<50); Cocaine Screen,Urine Negative ng/g (<300); Methadone Screen,Urine Negative ng/mL (<300); Opiate Screen,Urine Negative ng/mL (<300); Phencyclidine Screen,Urine Negative ng/mL (<25)
== END ==
LOC: LAB 11:01
PROVIDERS: Visit Provider Emergency Medicine
DX: Z79.899 Other long term (current) drug therapy (principal)
CPT/HCPCS: 80305

== ENCOUNTER → 2017-12-29 15:01 | Outpatient (REF) | payer MEDICAID, SELFPAY ==
[2017-12-29 18:19] LABS: Amphetamine/Metha Screen,Urine Negative ng/mL (<1000); Barbiturates Screen,Urine Negative ng/mL (<200); Benzodiazepines Screen,Urine Positive ng/mL (<200); Cannabinoid Screen,Urine Negative ng/mL (<50); Cocaine Screen,Urine Negative ng/mL (<300); Methadone Screen,Urine Negative ng/mL (<300); Opiate Screen,Urine Positive ng/mL (<300); Phencyclidine Screen,Urine Negative ng/mL (<25)
[2018-01-12 20:21] LABS: Alprazolam Negative (Cutoff=100); Benzodiazepines Positive ng/mL (Cutoff=100); Clonazepam Negative (Cutoff=100); Flurazepam Negative (Cutoff=100); Lorazepam Negative (Cutoff=100); Midazolam Negative (Cutoff=100); Temazepam Positive (.); Triazolam Negative (Cutoff=100)
[2018-01-14 06:32] LABS: Opiates Negative ng/mL (Cutoff=100)
== END ==
LOC: LAB 15:01
PROVIDERS: Physician Assistant; Visit Provider Emergency Medicine
DX: Z79.899 Other long term (current) drug therapy (principal)
CPT/HCPCS: 80305; 80346; 80361; G0480

== ENCOUNTER → 2018-01-18 07:56 | Outpatient (CLI) | payer MEDICAID, SELFPAY ==
--- NOTE | 2018-01-18 07:57 | MR_ITS ---
MR lumbar spine wo con, MR 3-d myelogram/MRCP HISTORY: LBP. Leg pain and intermittent numbness and tingling. Symptoms XYRS. ITS.REASON: Back Pain ORDERING PHYSICIAN: Kobe Dyer MD PATIENT AGE: 62 years Comparison: 07/31/2016 TECHNIQUE: Standard multiplanar multiecho sequences are performed without contrast. 3-D MIP and myelographic images are also rendered and reviewed FINDINGS: There is normal alignment. The spinal cord ends at the L1 level. T12-L1: Unremarkable. L1-L2, L2-L3, and L3-L4 discs show mild circumferential disc bulging. There is mild facet and ligamentum flavum hypertrophy at L2-L3 and L3-L4. L4-L5: Concentric bulging disc along with facet and ligamentum flavum hypertrophy with moderate bilateral lateral recess narrowing and moderate bilateral foraminal narrowing. There is transverse narrowing of the canal measuring 8 mm from the facet and ligamentum flavum hypertrophy. Small right foraminal/lateral disc protrusion versus disc osteophyte complex is present causing foraminal narrowing on the right. L5-S1: Concentric bulging disc with a small broad-based central disc protrusion very slightly eccentric toward the left abutting the anteromedial aspect of the left S1 nerve root. There is moderate bilateral foraminal narrowing left greater than right. IMPRESSION: 1. Mild circumferential bulging discs from L3 to L4 with mild facet hypertrophy. 2. Concentric bulging disc at L4-L5 along with facet and ligamentum flavum hypertrophy with moderate bilateral lateral recess narrowing and moderate bilateral foraminal narrowing. There is transverse narrowing of the canal measuring 8 mm from the facet and ligamentum flavum hypertrophy. Small right foraminal/lateral disc protrusion versus disc osteophyte complex is present causing foraminal narrowing on the right. 3. Concentric bulging disc at L5-S1 with a small broad-based central disc protrusion very slightly eccentric toward the left abutting the anteromedial aspect of the left S1 nerve root. There is moderate bilateral foraminal narrowing left greater than right.
== END ==
PROVIDERS: Family Provider Emergency Medicine; PCP Emergency Medicine; Visit Provider Emergency Medicine
DX: M54.9 Dorsalgia, unspecified (principal)
CPT/HCPCS: 72148; 76376

== ENCOUNTER → 2018-01-28 09:19 | Outpatient (REF) | payer MEDICAID, SELFPAY ==
[2018-01-28 14:17] LABS: Amphetamine/Metha Screen,Urine Negative ng/mL (<1000); Barbiturates Screen,Urine Negative ng/mL (<200); Benzodiazepines Screen,Urine Positive ng/mL (<200); Cannabinoid Screen,Urine Negative ng/mL (<50); Cocaine Screen,Urine Negative ng/mL (<300); Methadone Screen,Urine Negative ng/mL (<300); Opiate Screen,Urine Negative ng/mL (<300); Phencyclidine Screen,Urine Negative ng/mL (<25)
== END ==
LOC: LAB 09:19
PROVIDERS: Visit Provider Emergency Medicine
DX: M54.9 Dorsalgia, unspecified (principal)
CPT/HCPCS: 80305

== ENCOUNTER → 2018-02-28 11:16 | Outpatient (REF) | payer MEDICAID, SELFPAY ==
[2018-02-28 16:10] LABS: Amphetamine/Metha Screen,Urine Positive ng/mL (<1000); Barbiturates Screen,Urine Negative ng/mL (<200); Benzodiazepines Screen,Urine Positive ng/mL (<200); Cannabinoid Screen,Urine Negative ng/mL (<50); Cocaine Screen,Urine Negative ng/mL (<300); Methadone Screen,Urine Negative ng/mL (<300); Opiate Screen,Urine Positive ng/mL (<300); Phencyclidine Screen,Urine Negative ng/mL (<25)
[2018-03-14 00:13] LABS: Amphetamines Negative (Cutoff=500)
[2018-03-16 10:15] LABS: Alprazolam Negative (Cutoff=100); Benzodiazepines Positive ng/mL (Cutoff=100); Clonazepam Negative (Cutoff=100); Flurazepam Negative (Cutoff=100); Lorazepam Negative (Cutoff=100); Midazolam Negative (Cutoff=100); Temazepam Positive (.); Triazolam Negative (Cutoff=100)
== END ==
LOC: LAB 11:16
PROVIDERS: Physician Assistant; Visit Provider Nurse Practitioner Family
DX: Z79.899 Other long term (current) drug therapy (principal)
CPT/HCPCS: 80305; 80324; 80346

== ENCOUNTER → 2018-03-30 10:45 | Outpatient (REF) | payer MEDICAID, SELFPAY ==
[2018-03-30 14:30] LABS: Amphetamine/Metha Screen,Urine Negative ng/mL (<1000); Barbiturates Screen,Urine Negative ng/mL (<200); Benzodiazepines Screen,Urine Positive ng/mL (<200); Cannabinoid Screen,Urine Negative ng/mL (<50); Cocaine Screen,Urine Negative ng/mL (<300); Methadone Screen,Urine Negative ng/mL (<300); Opiate Screen,Urine Negative ng/mL (<300); Phencyclidine Screen,Urine Negative ng/mL (<25)
[2018-04-01 19:16] LABS: Microalbumin, Urine 3.9 ug/mL (Not Estab.)
== END ==
LOC: LAB 10:45
PROVIDERS: Visit Provider Emergency Medicine
DX: Z79.899 Other long term (current) drug therapy (principal); B19.20 Unspecified viral hepatitis C without hepatic coma; E11.9 Type 2 diabetes mellitus without complications
CPT/HCPCS: 80305; 82043

== ENCOUNTER → 2018-04-04 10:00 | Outpatient (POV) | payer MEDICAID, SELFPAY ==
[2018-04-04 10:11] VITALS: BP 172/79; PULSE 86; RESP 18; O2SAT 98
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
== END ==
PROVIDERS: Family Provider Emergency Medicine; PCP Emergency Medicine; Visit Provider Clinical Nurse Specialist Family Health
DX: M51.16 Intervertebral disc disorders with radiculopathy, lumbar region (principal)
CPT/HCPCS: 99202

== ENCOUNTER → 2018-04-05 08:56 | Outpatient (REF) | payer MEDICAID, SELFPAY ==
[2018-04-05 14:27] LABS: Amphetamine/Metha Screen,Urine Negative ng/mL (<1000); Barbiturates Screen,Urine Negative ng/mL (<200); Benzodiazepines Screen,Urine Negative ng/mL (<200); Cannabinoid Screen,Urine Negative ng/mL (<50); Cocaine Screen,Urine Negative ng/mL (<300); Methadone Screen,Urine Negative ng/mL (<300); Opiate Screen,Urine Negative ng/mL (<300); Phencyclidine Screen,Urine Negative ng/mL (<25)
== END ==
LOC: LAB 08:56
PROVIDERS: Visit Provider Emergency Medicine
DX: Z79.899 Other long term (current) drug therapy (principal)
CPT/HCPCS: 80305

== ENCOUNTER → 2018-04-19 13:29 | Outpatient (CLI) | payer MEDICAID, SELFPAY ==
[2018-04-19 14:36] LABS: Amphetamine/Metha Screen,Urine Negative ng/mL (<1000); Barbiturates Screen,Urine Negative ng/mL (<200); Benzodiazepines Screen,Urine Negative ng/mL (<200); Cannabinoid Screen,Urine Negative ng/mL (<50); Cocaine Screen,Urine Negative ng/mL (<300); Methadone Screen,Urine Negative ng/mL (<300); Opiate Screen,Urine Negative ng/mL (<300); Phencyclidine Screen,Urine Negative ng/mL (<25)
== END ==
PROVIDERS: PCP Emergency Medicine; Visit Provider Emergency Medicine
DX: Z79.899 Other long term (current) drug therapy (principal)
CPT/HCPCS: 80305

== ENCOUNTER → 2018-05-18 19:23 | Outpatient (CLI) | payer MEDICAID, SELFPAY ==
[2018-05-18 19:52] LABS: Anion Gap 13.4 mEq/L (5-15); Blood Urea Nitrogen 12 mg/dL (7-18); Calcium 9.7 mg/dL (8.5-10.1); Carbon Dioxide 30 mmol/L (21.0-32.0); Chloride 96 mmol/L (98-107); Creatinine,Serum 1.16 mg/dL (0.55-1.02); Estimated Glomerular Filt Rate 48 ml/min (>60); GFR (African American) 58 ML/MIN (>60); Glucose 241 mg/dL (74-106); Potassium 4.4 mmoL/L (3.5-5.1); Sodium 135 mmol/L (136-145)
[2018-05-18 19:55] LABS: Basophils # 0.1 K/mm3 (0-0.2); Basophils % 0.6 % (0.1-2.0); Eosinophils # 0.2 K/mm3 (0.0-0.4); Eosinophils % 1.6 % (0.1-12.0); Hematocrit 44.7 % (37.0-47.0); Hemoglobin 14.8 g/dL (12.2-16.2); Lymphocytes # 3.7 K/mm3 (0.7-4.5); Lymphocytes % 40.5 % (10-50); Mean Corpuscular HGB Conc 33.2 g/dL (31.8-35.4); Mean Corpuscular Hemoglobin 29.4 pg (27.0-31.2); Mean Corpuscular Volume 88.5 fl (81-99); Mean Platelet Volume 8.2 fl (7.4-10.4); Monocytes # 0.4 K/mm3 (0.1-1.0); Monocytes % 3.8 % (1.7-9.3); Neutrophils # 4.9 K/mm3 (1.8-7.8); Neutrophils % 53.5 % (37.0-80.0); Platelet Count 298 K/mm3 (142-424); Red Blood Count 5.05 M/mm3 (4.20-5.40); Red Cell Distribution Width 13.7 % (11.5-17.5); White Blood Count 9.1 K/mm3 (4.8-10.8)
[2018-05-18 21:53] LABS: Amphetamine/Metha Screen,Urine Negative ng/mL (<1000); Barbiturates Screen,Urine Negative ng/mL (<200); Benzodiazepines Screen,Urine Negative ng/mL (<200); Cannabinoid Screen,Urine Negative ng/mL (<50); Cocaine Screen,Urine Negative ng/mL (<300); Methadone Screen,Urine Negative ng/mL (<300); Opiate Screen,Urine Negative ng/mL (<300); Phencyclidine Screen,Urine Negative ng/mL (<25)
== END ==
PROVIDERS: Visit Provider Emergency Medicine
DX: I10 Essential (primary) hypertension (principal); Z79.899 Other long term (current) drug therapy
CPT/HCPCS: 80048; 80305; 83036; 85025

== ENCOUNTER 2018-10-28 16:34 | Observation (INO) ==
--- NOTE | 2018-10-28 17:22 | Emergency Department Note ---
ED Disposition Clinical Impression: Pneumonia Qualifiers: Pneumonia type: due to unspecified organism Laterality: right Lung location: middle lobe of lung Qualified Code(s): J18.1 - Lobar pneumonia, unspecified organism Disposition: Admitted As Inpatient Condition on Discharge: Good Referrals: Kobe Dyer MD [Primary Care Provider] - - Critical Care Critical Care Time: No Attestation: On , the high probability of a clinically significant, sudden or life threatening deterioration of the following system(s) required my full and direct attention, intervention and personal management. The time I documented below is in addition to time spent performing reported procedures but includes the fol lowing listed in this critical care notation. Medical Decision Making - Medical Records Medical records reviewed: Yes: I reviewed the patient's medical records. - Shine Inquiry Pt receiving controlled substance: No Vital Signs: 10/28/18 17:14 10/28/18 18:00 10/28/18 18:03 Temperature 98.4 F 99.3 F Temperature Source Oral Oral Pulse Rate 95 H Pulse Rate [Left Radial] 109 H Respiratory Rate 20 Blood Pressure [Right Arm] 179/79 H Blood Pressure Mean [Right Arm] 112 Blood Pressure Source [Right Arm] Automatic Cuff Blood Pressure Position [Right Arm] Sitting 02 Sat by Pulse Oximetry 96 Oxygen Delivery Method Room Air 10/28/18 18:09 Temperature Temperature Source Pulse Rate Pulse Rate [Left Radial] 98 H Respiratory Rate 22 Blood Pressure [Right Arm] 151/79 H Blood Pressure Mean [Right Arm] 103 Blood Pressure Source [Right Arm] Automatic Cuff Blood Pressure Position [Right Arm] Sitting 02 Sat by Pulse Oximetry 96 Oxygen Delivery Method Room Air - Lab Data Lab Results 10/28/18 17:05: WBC 10.7, RBC 4.07 L, Hgb 12.4, Hct 35.1 L, MCV 86.2, MCH 30.4, MCHC 35.2, RDW 13.4, Plt Count 268, MPV 7.1 L, Neut % (Auto) 63.0, Lymph % (Auto) 30.6, [place] % (Auto) 4.5, Eos % (Auto) 1.4, Baso % (Auto) 0.6, Neut # (Auto) 6.7, Lymph # (Auto) 3.3, [place] # (Auto) 0.5, Eos # (Auto) 0.2, Baso # (Auto) 0.1 10/28/18 17:05: Sodium 134 L, Potassium 3.0 L, Chloride 96 L, Carbon Dioxide 29, Anion Gap 12.0, BUN 12, Creatinine 1.02, Estimated Creat Clear 85, Estimated GFR 55 L, Est GFR ( Amer) 67, Glucose 257 H, Calcium 8.3 L, Total Bilirubin 0.5, AST 58 H, ALT 83 H, Alkaline Phosphatase 110, Troponin I < 0.02, Total Protein 8.3 H, Albumin 3.4, Globulin 4.9 H, Albumin/Globulin Ratio 0.7 L 10/28/18 17:05: Lactate 1.3 10/28/18 17:05: D-Dimer 601 H* Result diagrams: 10/28/18 17:05 10/28/18 17:05 Orders (Tests/Meds): ED MEDICATIONS Generic Name Dose Route Start Last Admin Trade Name Freq PRN Reason Stop Dose Admin Levofloxacin/Dextrose 500 mg in 100 mls @ 100 mls/hr 10/28/18 17:15 10/28/18 17:52 Levaquin 500mg/100ml Premix IV 11/11/18 17:14 100 mls/hr Q24H LEIDY Administration Protocol Sodium Chloride 500 mls @ 999 mls/hr 10/28/18 19:00 10/28/18 18:56 Sod Chlor 0.9% 1000ml Bag IV 10/28/18 19:30 999 mls/hr .Q31M LEIDY Administration Discontinued Medications Generic Name Dose Route Start Last Admin Trade Name Freq PRN Reason Stop Dose Admin Albuterol/Ipratropium 3 ml 10/28/18 17:14 10/28/18 17:55 Duoneb 3ml Neb IH 10/28/18 17:15 3 ml ONCE ONE Administration Ketorolac Tromethamine 30 mg 10/28/18 17:58 10/28/18 18:10 Toradol 30mg/Ml Vial IV 10/28/18 17:59 30 mg ONCE ONE Administration Potassium Chloride 20 meq 10/28/18 18:17 10/28/18 18:36 Klor-Con 20meq Tablet PO 10/28/18 18:18 20 meq ONCE ONE Administration Sodium Chloride 100 ml 10/28/18 18:52 10/28/18 18:53 Rad-Sod Chloride 0.9% 250ml IV 10/28/18 18:53 100 ml ONCE ONE Administration ORDERS Category Date Time Status CTA Chest [CT angio chest] Stat Cat Scan 10/28/18 18:17 Taken Blood Culture Stat Micro 10/28/18 17:05 Received ECG Request by /Reginald Stat Y 10/28/18 17:14 Ordered - CT Data CT Scan: Chest Time Received: 19:38 (no pe, +rml infil, right lung nodule) ED CT Reviewed: Yes: I have viewed the radiologist's interpretation - ECG Data Tracing #1 I reviewed this ECG and interpreted as documented below: ECG initial impression time: 19:39 Medical Decision Narrative: admit d/w Dr Frausto General Adult HPI - General Stated complaint: SOA, Wet Cough, Upper Abd Pain, Poss cyst on thigh Time Seen by Provider: 10/28/18 17:16 Source of Information: Patient - History of Present Illness HPI narrative: mild to mod off and on congested cough for one week getting worse, with green sput and short of breath, no fever, no emesis, hx recent rupture and draining right groin abcess, speech fluent - Related Data Home Medications Medication Instructions Recorded Confirmed polyethylene glycol 3350 17 17 g PO DAILY 10/24/18 10/28/18 gram/dose oral powder [Novolog Mix 70-30FlexPen U-100] 8 unit SUB-Q TID 10/28/18 10/28/18 Amlodipine Besylate [Amlodipine 10 mg PO DAILY 10/28/18 10/28/18 10mg Tab] Atorvastatin Calcium [Atorvastatin 10 mg PO DAILY 10/28/18 10/28/18 10mg Tab] Blood Sugar Diagnostic [OneTouch See Dose Instructions units .ROUTE 10/28/18 10/28/18 Ultra Blue Test Strip] .MEDSUPPLY Budesonide/Formoterol Fumarate 2 puff INHALATION BID 10/28/18 10/28/18 [Symbicort] Fluticasone/Vilanterol [Breo 1 inh INHALATION DAILY 10/28/18 10/28/18 Ellipta] Gabapentin [Gabapentin 300mg Cap] 300 mg PO TID 10/28/18 10/28/18 Lancets See Dose Instructions units .ROUTE 10/28/18 10/28/18 .MEDSUPPLY glipiZIDE [Glipizide] 10 mg PO BID 10/28/18 10/28/18 Previous Rx's Medication Instructions Recorded pen needle, diabetic 31 gauge x 31 g .ROUTE .MEDSUPPLY #100 unit 03/25/1811/03" hydrochlorothiazide 25 mg tablet 25 mg PO DAILY #90 tab 10/24/18 irbesartan 75 mg tablet 75 mg PO DAILY #90 tab 10/24/18 loratadine 10 mg tablet 10 mg PO DAILY #30 tab 10/24/18 oxycodone 5 mg tablet 5 mg PO BID PRN #60 tab 10/24/18 Allergies Allergy/AdvReac Type Severity Reaction Status Date / Time codeine [CODEINE] Allergy Unknown Verified 10/24/18 09:31 Sulfa (Sulfonamide Allergy Unknown Verified 10/24/18 09:31 Antibiotics) [SULFA (SULFONAMIDE ANTIBIOTICS)] [facility] History - Hepatitis A Screen Attestation statement:: This patient has been screened for Hepatitis A risk factors. Medical History: Reports:: Asthma, Cancer, Diabetes Mellitus Type 2, Hypertension, Myocardial Infarction Denies:: Diabetes Mellitus Type 1, MRSA, Seizures Other Medical History: Reports: Arthritis, Liver Disease, Other. Denies: Blood Transfusion Reaction Comment: Reportedly had a seizure many years ago without etiology. On no meds for prevention. Questionable [place] with subsequent cardiac cath, 2007, [place], [place] without need for intervention. Other Surgeries: Yes: Angioplasty, Appendectomy, Colonoscopy, Hysterectomy-Tota l, Other Amputation: No Fractures: No Comment: KIDNEY SURGERY - Social History Smoking Status: Current every day smoker Tobacco Type: cigarettes # Packs/Day (cigarettes): 10 #Yrs smoked (if former smoker): 50 Alcohol Intake: never Substance Use Type: denies use Occupational Status: disabled Housing: house Household Members: other Family Hx:: Asthma, Cancer, Diabetes, Heart Attack, Hyperlipidemia, Hypertension, Kidney Disease, Stroke, Thyroid Disorder ROS Obtained: Yes Systems reviewed as appropriate & no additional complaints - Constitutional Constitutional: Reports fatigue, Denies fever(s) - Eyes Eyes: Denies change in vision - ENT Ears, Nose, Mouth, and Throat: Denies dizziness - Cardiovascular Cardiovascular: Denies chest pain - Respiratory Respiratory: Yes change in phlegm color, Yes cough, Yes dyspnea - Gastrointestinal Gastrointestingal: Denies: abdominal pain, vomiting - Musculoskeletal Musculoskeletal: Denies neck pain - Integumentary/Breasts Skin/Breast: Reports new lesions - Neurologic Neurologic: Denies dizziness Physical Exam - General General appearance: alert, in no apparent distress - Head Head exam: atraumatic - Eye Eye exam: Present: normal appearance - ENT ENT exam: Present: mucous membranes moist - Neck Neck exam: Present: normal inspection - Chest Chest inspection: Present: normal inspection - Respiratory Respiratory exam: Present: wheezes. Absent: respiratory distress, stridor - Cardiovascular Cardiovascular exam: Present: regular rate, normal rhythm - Abdominal Exam Abdominal exam: Present: soft. Absent: tenderness - Extremities Exam Extremities exam: Present: other (tender red 1cm nonfluc right groin wound, no bleeding) - Back Exam Back exam: Absent: vertebral tenderness - Neurological Exam Neurological exam: Present: alert, oriented X3 - Psychiatric Psychiatric exam: Present: normal affect, normal mood - Skin Skin exam: Absent: cyanosis
[2018-10-28 17:25] LABS: Basophils # 0.1 K/mm3 (0-0.2); Basophils % 0.6 % (0.1-2.0); Eosinophils # 0.2 K/mm3 (0.0-0.4); Eosinophils % 1.4 % (0.1-12.0); Hematocrit 35.1 % (37.0-47.0); Hemoglobin 12.4 g/dL (12.2-16.2); Lymphocytes # 3.3 K/mm3 (0.7-4.5); Lymphocytes % 30.6 % (10-50); Mean Corpuscular HGB Conc 35.2 g/dL (31.8-35.4); Mean Corpuscular Hemoglobin 30.4 pg (27.0-31.2); Mean Corpuscular Volume 86.2 fl (81-99); Mean Platelet Volume 7.1 fl (7.4-10.4); Monocytes # 0.5 K/mm3 (0.1-1.0); Monocytes % 4.5 % (1.7-9.3); Neutrophils # 6.7 K/mm3 (1.8-7.8); Platelet Count 268 K/mm3 (142-424); Red Blood Count 4.07 M/mm3 (4.20-5.40); Red Cell Distribution Width 13.4 % (11.5-17.5); White Blood Count 10.7 K/mm3 (4.8-10.8)
[2018-10-28 17:34] LABS: Alanine Aminotransferase 83 U/L (12-78); Albumin Level 3.4 gm/dL (3.4-5.0); Albumin/Globulin Ratio 0.7 (1.1-1.8); Alkaline Phosphatase 110 U/L (46-116); Aspartate Amino Transferase 58 U/L (15-37); Bilirubin,Total 0.5 mg/dL (0.2-1.0); Blood Urea Nitrogen 12 mg/dL (7-18); Calcium 8.3 mg/dL (8.5-10.1); Carbon Dioxide 29 mmol/L (21.0-32.0); Chloride 96 mmol/L (98-107); Globulin 4.9 gm/dl (1.3-3.2); Glucose 257 mg/dL (74-106); Sodium 134 mmol/L (136-145); Total Protein,Serum 8.3 gm/dL (6.4-8.2)
[2018-10-29 05:55] LABS: Basophils % 0.5 % (0.1-2.0); Eosinophils # 0.2 K/mm3 (0.0-0.4); Eosinophils % 2.9 % (0.1-12.0); Hematocrit 31.6 % (37.0-47.0); Lymphocytes # 2.4 K/mm3 (0.7-4.5); Lymphocytes % 44.5 % (10-50); Mean Corpuscular HGB Conc 34.5 g/dL (31.8-35.4); Mean Corpuscular Hemoglobin 30.1 pg (27.0-31.2); Mean Corpuscular Volume 87.2 fl (81-99); Mean Platelet Volume 7.4 fl (7.4-10.4); Monocytes # 0.3 K/mm3 (0.1-1.0); Monocytes % 5.9 % (1.7-9.3); Neutrophils # 2.5 K/mm3 (1.8-7.8); Neutrophils % 46.2 % (37.0-80.0); Platelet Count 192 K/mm3 (142-424); Red Blood Count 3.63 M/mm3 (4.20-5.40); Red Cell Distribution Width 13.5 % (11.5-17.5); White Blood Count 5.4 K/mm3 (4.8-10.8)
[2018-10-29 05:58] LABS: Hemoglobin 10.9 g/dL (12.2-16.2)
[2018-10-29 06:02] LABS: Anion Gap 11.3 mEq/L (5-15); Calcium 7.8 mg/dL (8.5-10.1); Potassium 3.3 mmoL/L (3.5-5.1)
--- NOTE | 2018-10-29 10:06 | History & Physical Report ---
*Admission Date: 10/28/18 *Chief complaint: sob *History of present illness: 63-year-old female presented to the ER with complaints of congested and coughing thick green sputum and shortness of breath for over a week and getting worse. Patient states no fever, no emesis, hx recent rupture and draining right groin abscess. Patient admitted for pneumonia. Will treat right groin abscess with Rocephin. [facility] History I have reviewed the patient's past medical history: Yes Medical History: Reports:: Asthma, Cancer, Coronary Artery Disease, Diabetes Mellitus Type 2, Hyperlipidemia, Hypertension, Myocardial Infarction Denies:: Diabetes Mellitus Type 1, MRSA, Seizures *Have you ever received a pneumonia vaccine?: No *Have you received a flu vaccine this season?: Yes Other Medical History: Reports: Arthritis, Liver Disease, Other. Denies: Blood Transfusion Reaction Other Surgeries: Yes: Angioplasty, Appendectomy, Colonoscopy, Hysterectomy- Total, Other Amputation: No Fractures: No - *Social History Smoking Status: Current every day smoker Tobacco Type: cigarettes # Packs/Day (cigarettes): 1 #Yrs smoked (if former smoker): 50 Alcohol Intake: current Alcohol Intake Frequency:: holidays/special occasions only Substance Use Type: denies use *Occupational Status:: disabled Housing: house Household Members: other *Travel in the last 8 weeks: None - Psychiatric History Expresses thoughts of harming self/others: None Suicide Plan Description: No Plan Family Hx:: Asthma, Cancer, Diabetes, Heart Attack, Hyperlipidemia, Hypertension, Kidney Disease, Stroke, Thyroid Disorder Review of Systems - Constitutional Reports body ache(s), Denies fever(s) - Eyes Denies change in vision - ENT Denies difficulty swallowing - *Cardiovascular Reports shortness of breath, Denies chest pain with activity - *Respiratory Reports chest congestion, Reports cough, Reports shortness of breath, Reports shortness of breath with activity, Reports excessive phlegm production - *Gastrointestinal Denies bloating, Denies vomiting - *Genitourinary Denies urinary incontinence - *Musculoskeletal Reports body aches - Integumentary/Breasts Reports wounds, Denies rash - *Neurologic Denies dizziness - Psychiatric Denies anxiety - Endocrine Denies flushing - Hematologic/Lymphatic Denies enlarged lymph nodes - Allergic/Immunologic Denies lip swelling Meds Home Medications Medication Instructions Recorded Confirmed Type pen needle, diabetic 31 gauge x 31 g .ROUTE .MEDSUPPLY #100 unit 03/25/18 10/28/18 Rx 5/16" hydrochlorothiazide 25 mg tablet 25 mg PO DAILY #90 tab 10/24/18 10/28/18 Rx irbesartan 75 mg tablet 75 mg PO DAILY #90 tab 10/24/18 10/28/18 Rx loratadine 10 mg tablet 10 mg PO DAILY #30 tab 10/24/18 10/28/18 Rx oxycodone 5 mg tablet 5 mg PO BID PRN #60 tab 10/24/18 10/28/18 Rx polyethylene glycol 3350 17 17 g PO DAILY 10/24/18 10/29/18 History gram/dose oral powder [Novolog Mix 70-30FlexPen U-100] 8 unit SUB-Q TID 10/28/18 10/28/18 History Amlodipine Besylate [Amlodipine 10 mg PO DAILY 10/28/18 10/28/18 History 10mg Tab] Atorvastatin Calcium [Atorvastatin 10 mg PO DAILY 10/28/18 10/28/18 History 10mg Tab] Blood Sugar Diagnostic [OneTouch See Dose Instructions units .ROUTE 10/28/18 10/28/18 History Ultra Blue Test Strip] .MEDSUPPLY Budesonide/Formoterol Fumarate 2 puff INHALATION BID 10/28/18 10/28/18 History [Symbicort] Fluticasone/Vilanterol [Breo 1 inh INHALATION DAILY 10/28/18 10/28/18 History Ellipta] Gabapentin [Gabapentin 300mg Cap] 300 mg PO TID 10/28/18 10/28/18 History Lancets See Dose Instructions units .ROUTE 10/28/18 10/28/18 History .MEDSUPPLY glipiZIDE [Glipizide] 10 mg PO BID 10/28/18 10/28/18 History Allergies Allergy/AdvReac Type Severity Reaction Status Date / Time codeine [CODEINE] Allergy Unknown Verified 10/24/18 09:31 Sulfa (Sulfonamide Allergy Unknown Verified 10/24/18 09:31 Antibiotics) [SULFA (SULFONAMIDE ANTIBIOTICS)] Exam Vital signs and Labs for Last 24 Hours: Temp Pulse Resp BP Pulse Ox 98.1 F 96 H 18 151/85 H 95 10/29/18 08:00 10/29/18 08:00 10/29/18 08:00 10/29/18 08:00 10/29/18 08:00 Laboratory Results - last 24 hr 10/28/18 17:05: WBC 10.7, RBC 4.07 L, Hgb 12.4, Hct 35.1 L, MCV 86.2, MCH 30.4, MCHC 35.2, RDW 13.4, Plt Count 268, MPV 7.1 L, Neut % (Auto) 63.0, Lymph % (Auto) 30.6, [place] % (Auto) 4.5, Eos % (Auto) 1.4, Baso % (Auto) 0.6, Neut # (Auto) 6.7, Lymph # (Auto) 3.3, [place] # (Auto) 0.5, Eos # (Auto) 0.2, Baso # (Auto) 0.1 10/28/18 17:05: Sodium 134 L, Potassium 3.0 L, Chloride 96 L, Carbon Dioxide 29, Anion Gap 12.0, BUN 12, Creatinine 1.02, Estimated Creat Clear 85, Estimated GFR 55 L, Est GFR ( Amer) 67, Glucose 257 H, Calcium 8.3 L, Total Bilirubin 0.5, AST 58 H, ALT 83 H, Alkaline Phosphatase 110, Troponin I < 0.02, Total Protein 8.3 H, Albumin 3.4, Globulin 4.9 H, Albumin/Globulin Ratio 0.7 L 10/28/18 17:05: Lactate 1.3 10/28/18 17:05: D-Dimer 601 H* 10/28/18 23:32: POC Glucose 295 H 10/29/18 05:25: WBC 5.4 D, RBC 3.63 L, Hgb 10.9 L D, Hct 31.6 L, MCV 87.2, MCH 30.1, MCHC 34.5, RDW 13.5, Plt Count 192 D, MPV 7.4, Neut % (Auto) 46.2, Lymph % (Auto) 44.5, [place] % (Auto) 5.9, Eos % (Auto) 2.9, Baso % (Auto) 0.5, Neut # (Auto) 2.5, Lymph # (Auto) 2.4, [place] # (Auto) 0.3, Eos # (Auto) 0.2, Baso # (Auto) 0.0 10/29/18 05:25: Sodium 139, Potassium 3.3 L, Chloride 104, Carbon Dioxide 27, Anion Gap 11.3, BUN 11, Creatinine 0.84, Estimated Creat Clear 90, Estimated GFR 69, Est GFR ( Amer) 83 D, Glucose 181 H D, Calcium 7.8 L 10/29/18 06:41: POC Glucose 193 H I & O for Last 24 hours: Intake & Output 10/26/18 10/27/18 10/28/18 10/29/18 11:59 11:59 11:59 11:59 Intake Total 1924 Balance 1924 Weight 212 lb 4 oz Microbiology Reports for the Last 24 Hours: Microbiology 10/28/18 18:00 Sputum - Expectorated Sputum Gram Stain - Final - Constitutional no acute distress - *Routine HEENT Exam Head: Present: normocephalic Eye: Present: PERRL ENT: Present: mucous membranes moist - *Routine Neck Exam Present: supple. Absent: lymphadenopathy - *Routine Respiratory Exam Present: rhonchi, wheezes, diminished air movement - *Routine Cardiovascular Exam Present: RRR - *Routine Abdominal Exam Present: soft, normoactive bowel sounds. Absent: tenderness - *Routine Extremities Exam Present: full ROM - *Routine Skin Exam Present: warm. Absent: rash Comments: Right groin fold induration noted no redness or drainage - *Routine Neurological Exam Present: alert, oriented X3 - Routine Psychiatric Exam Present: normal affect Assessment and Plan - Assessment and plan all Dx Assessment and Plan for all problems:: We will add antibiotic for abscess We will add breathing treatments and steroids for wheezing Discussed patient with Dr. Dyer
--- NOTE | 2018-10-29 11:43 | Pharmacy Consult Notes ---
[facility] Pharmacy VTE Monitoring - Patient Demographics Admission date: 10/28/18 Report Date: 10/29/18 Time: 11:43 Allergies/Adverse Reactions: Patient Allergies codeine [CODEINE] Allergy (Unknown, Verified 10/24/18 09:31) Sulfa (Sulfonamide Antibiotics) [SULFA (SULFONAMIDE ANTIBIOTICS)] Allergy (Unknown, Verified 10/24/18 09:31) Height: 1.63 m Weight: 96.275 kg Patient Problems: Current Active Problems (Updated 10/29/18 @ 10:06 by Peggy Adams APRN) Pneumonia (Acute) - VTE Risk Labs: VTE Related Lab Results Hgb 10.9 g/dL (12.2-16.2) L D 10/29/18 05:25 Hct 31.6 % (37.0-47.0) L 10/29/18 05:25 Plt Count 192 K/mm3 (142-424) D 10/29/18 05:25 BUN 11 mg/dL (7-18) 10/29/18 05:25 Creatinine 0.84 mg/dL (0.55-1.02) 10/29/18 05:25 Estimated Creat Clear 90 mL/min (50-200) 10/29/18 05:25 Was VTE Risk Assessment Performed: Yes VTE Score: 6 VTE Risk Level: Moderate Risk - Prophylaxis VTE Prophylaxis Ordered?: Yes Types of VTE Prophylaxis: TEDS Knee High Location of Applied Device: Bilateral Lower Extremeties
[2018-10-30 07:01] LABS: Eosinophils % 0.1 % (0.1-12.0); Hematocrit 33.4 % (37.0-47.0); Hemoglobin 11.8 g/dL (12.2-16.2); Lymphocytes # 1.1 K/mm3 (0.7-4.5); Lymphocytes % 12.5 % (10-50); Mean Corpuscular HGB Conc 35.3 g/dL (31.8-35.4); Mean Corpuscular Hemoglobin 30.4 pg (27.0-31.2); Mean Corpuscular Volume 86.1 fl (81-99); Mean Platelet Volume 7.8 fl (7.4-10.4); Monocytes # 0.1 K/mm3 (0.1-1.0); Monocytes % 1.7 % (1.7-9.3); Neutrophils # 7.5 K/mm3 (1.8-7.8); Neutrophils % 85.7 % (37.0-80.0); Platelet Count 190 K/mm3 (142-424); Red Blood Count 3.88 M/mm3 (4.20-5.40); Red Cell Distribution Width 13.5 % (11.5-17.5); White Blood Count 8.8 K/mm3 (4.8-10.8)
[2018-10-30 07:19] LABS: Albumin Level 2.7 gm/dL (3.4-5.0); Albumin/Globulin Ratio 0.6 (1.1-1.8); Anion Gap 11.6 mEq/L (5-15); Bilirubin,Total 0.3 mg/dL (0.2-1.0); Calcium 8.1 mg/dL (8.5-10.1); Globulin 4.9 gm/dl (1.3-3.2); Potassium 3.6 mmoL/L (3.5-5.1); Total Protein,Serum 7.6 gm/dL (6.4-8.2)
[2018-10-30 07:51] LABS: Lymphocytes % 3 % (10-50); Neutrophils % 94 % (42-76); RBC Morphology Normal; Total Cells Counted 100
--- NOTE | 2018-10-30 09:38 | Progress Note ---
Internal Medicine - PN: Subj *Date: 10/30/18 *Time: 09:35 Interval history: Patient states she has been up and down to the bathroom and sitting on the side of the bed. Patient states her chronic back pain has been worse since laying in bed. Patient states last night while getting up to the bathroom she had increased shortness of breath-Per staff O2 saturation was 99% and respirations were 22. Exam Vital signs and Labs for Last 24 Hours: Temp Pulse Resp BP Pulse Ox 98.1 F 94 H 18 158/78 H 95 10/30/18 07:44 10/30/18 07:44 10/30/18 08:00 10/30/18 07:44 10/30/18 08:00 Laboratory Results - last 24 hr 10/29/18 11:09: POC Glucose 262 H 10/29/18 17:00: POC Glucose 324 H* 10/30/18 06:35: WBC 8.8 D, RBC 3.88 L, Hgb 11.8 L, Hct 33.4 L, MCV 86.1, MCH 30.4, MCHC 35.3, RDW 13.5, Plt Count 190, MPV 7.8, Neut % (Auto) 85.7 H, Lymph % (Auto) 12.5, [place] % (Auto) 1.7, Eos % (Auto) 0.1, Baso % (Auto) 0.0 L, Neut # (Auto) 7.5, Lymph # (Auto) 1.1, [place] # (Auto) 0.1, Eos # (Auto) 0.0, Baso # (Auto) 0.0, Total Counted 100, Neutrophils % (Manual) 94 H, Band Neutrophils % 1.0, Lymphocytes % (Manual) 3 L, Atypical Lymphs % 2.0, Platelet Estimate Normal, RBC Morphology Normal 10/30/18 06:35: Sodium 137, Potassium 3.6, Chloride 103, Carbon Dioxide 26, Anion Gap 11.6, BUN 14 D, Creatinine 0.94, Estimated Creat Clear 89, Estimated GFR 61, Est GFR ( Amer) 73, Glucose 318 H, Calcium 8.1 L, Total Bilirubin 0.3, AST 30 D, ALT 65, Alkaline Phosphatase 102, Total Protein 7.6, Albumin 2.7 L, Globulin 4.9 H, Albumin/Globulin Ratio 0.6 L I & O for Last 24 hours: Intake & Output 10/27/18 10/28/18 10/29/18 10/30/18 11:59 11:59 11:59 11:59 Intake Total 1924 2851 / 2851 Balance 19245 2851 / 2851 Weight 212 lb 4 oz 211 lb 3 oz Microbiology Reports for the Last 24 Hours: Microbiology 10/28/18 18:00 Sputum - Expectorated Sputum Gram Stain - Final 10/28/18 18:00 Sputum - Expectorated Sputum Sputum Culture - Preliminary - Constitutional no acute distress - *Routine HEENT Exam Head: Present: normocephalic Eye: Present: EOMI, PERRL ENT: Present: mucous membranes moist - *Routine Neck Exam Present: supple. Absent: lymphadenopathy - *Routine Respiratory Exam Present: wheezes, diminished air movement - *Routine Cardiovascular Exam Present: RRR - *Routine Abdominal Exam Present: soft, normoactive bowel sounds. Absent: tenderness - *Routine Extremities Exam Absent: cyanosis, clubbing, edema - *Routine Skin Exam Present: warm, wounds. Absent: rash Comments: Right groin with induration no redness or drainage noted - *Routine Neurological Exam Present: alert, oriented X3 - Routine Psychiatric Exam Present: normal affect Assessment and Plan (1) Abscess Current visit: Yes Status: Acute Category: Medical Code(s): L02.91 - Cutaneous abscess, unspecified (2) Pneumonia Current visit: Yes Status: Acute Qualifiers: Pneumonia type: due to unspecified organism Laterality: right Lung location: middle lobe of lung Qualified Code(s): J18.1 - Lobar pneumonia, unspecified organism Category: Medical Code(s): J18.9 - Pneumonia, unspecified organism (3) Diabetes 1.5, managed as type 1 Current visit: No Status: Acute Category: Medical Code(s): E10.9 - Type 1 diabetes mellitus without complications (4) Foraminal stenosis of lumbar region Current visit: No Status: Acute Category: Medical Code(s): M99.83 - Other biomechanical lesions of lumbar region (5) Degenerative disc disease Current visit: No Status: Chronic Qualifiers: Spinal region: lumbar Qualified Code(s): M51.36 - Other intervertebral disc degeneration, lumbar region Category: Medical (6) Tobacco use Current visit: No Status: Chronic Category: Medical Code(s): Z72.0 - T obacco use - Assessment and plan all Dx Assessment and Plan for all problems:: Discussed patient with Dr. Dyer all orders per Dr. Dyer Encourage patient to be out of bed sitting in chair should help back pain Breathing treatments as needed Possible discharge home in the a.m.
[2018-10-31 06:43] LABS: Eosinophils % 0.1 % (0.1-12.0); Hematocrit 32.9 % (37.0-47.0); Hemoglobin 11.1 g/dL (12.2-16.2); Lymphocytes % 8.4 % (10-50); Mean Corpuscular HGB Conc 33.7 g/dL (31.8-35.4); Mean Platelet Volume 7.9 fl (7.4-10.4); Monocytes # 0.4 K/mm3 (0.1-1.0); Monocytes % 2.9 % (1.7-9.3); Neutrophils % 88.6 % (37.0-80.0); Platelet Count 219 K/mm3 (142-424); Red Cell Distribution Width 13.8 % (11.5-17.5); White Blood Count 12.5 K/mm3 (4.8-10.8)
[2018-10-31 06:53] LABS: Albumin Level 2.9 gm/dL (3.4-5.0); Albumin/Globulin Ratio 0.6 (1.1-1.8); Anion Gap 12.7 mEq/L (5-15); Bilirubin,Total 0.3 mg/dL (0.2-1.0); Calcium 8.1 mg/dL (8.5-10.1); Globulin 4.6 gm/dl (1.3-3.2); Potassium 3.7 mmoL/L (3.5-5.1); Total Protein,Serum 7.5 gm/dL (6.4-8.2)
[2018-10-31 08:10] LABS: Lymphocytes % 5 % (10-50); Monocytes % 2 % (2-9); Neutrophils % 88 % (42-76); RBC Morphology Normal; Total Cells Counted 100
--- NOTE | 2018-10-31 11:23 | Discharge Summary ---
General - General Admission date:: 10/28/18 HPI HPI: 63-year-old female presented to the ER with complaints of congested and coughing thick green sputum and shortness of breath for over a week and getting worse. Patient states no fever, no emesis, hx recent rupture and draining right groin abscess. Patient admitted for pneumonia. Will treat right groin abscess with Rocephin. Objective Vital signs: Temp Pulse Resp BP Pulse Ox 98.0 F 85 20 180/80 H 96 10/31/18 07:30 10/31/18 07:30 10/31/18 07:30 10/31/18 07:30 10/31/18 07:30 Results Labs on day of discharge: Labs from last 24 hours 10/31/18 10/31/18 10/31/18 05:50 05:50 05:25 WBC 12.5 H D RBC 3.70 L Hgb 11.1 L Hct 32.9 L MCV 89.0 MCH 30.0 MCHC 33.7 RDW 13.8 Plt Count 219 MPV 7.9 Neut % (Auto) 88.6 H Lymph % (Auto) 8.4 L [place] % (Auto) 2.9 Eos % (Auto) 0.1 Baso % (Auto) 0.0 L Neut # (Auto) 11.0 H Lymph # (Auto) 1.0 [place] # (Auto) 0.4 Eos # (Auto) 0.0 Baso # (Auto) 0.0 Total Counted 100 Neutrophils % (Manual) 88 H Band Neutrophils % 3.0 Lymphocytes % (Manual) 5 L Atypical Lymphs % 2.0 Monocytes % (Manual) 2 Platelet Estimate Normal RBC Morphology Normal Sodium 137 Potassium 3.7 Chloride 102 Carbon Dioxide 26 Anion Gap 12.7 BUN 13 Creatinine 0.91 Estimated Creat Clear 89 Estimated GFR 63 Est GFR ( Amer) 76 Glucose 441 H* D POC Glucose 457 H* Calcium 8.1 L Total Bilirubin 0.3 AST 31 ALT 63 Alkaline Phosphatase 151 H Total Protein 7.5 Albumin 2.9 L Globulin 4.6 H Albumin/Globulin Ratio 0.6 L 10/30/18 10/30/18 10/30/18 20:35 16:25 11:27 WBC RBC Hgb Hct MCV MCH MCHC RDW Plt Count MPV Neut % (Auto) Lymph % (Auto) [place] % (Auto) Eos % (Auto) Baso % (Auto) Neut # (Auto) Lymph # (Auto) [place] # (Auto) Eos # (Auto) Baso # (Auto) Total Counted Neutrophils % (Manual) Band Neutrophils % Lymphocytes % (Manual) Atypical Lymphs % Monocytes % (Manual) Platelet Estimate RBC Morphology Sodium Potassium Chloride Carbon Dioxide Anion Gap BUN Creatinine Estimated Creat Clear Estimated GFR Est GFR ( Amer) Glucose POC Glucose 350 H* 344 H* 424 H* Calcium Total Bilirubin AST ALT Alkaline Phosphatase Total Protein Albumin Globulin Albumin/Globulin Ratio 10/30/18 10/29/18 05:31 19:52 WBC RBC Hgb Hct MCV MCH MCHC RDW Plt Count MPV Neut % (Auto) Lymph % (Auto) [place] % (Auto) Eos % (Auto) Baso % (Auto) Neut # (Auto) Lymph # (Auto) [place] # (Auto) Eos # (Auto) Baso # (Auto) Total Counted Neutrophils % (Manual) Band Neutrophils % Lymphocytes % (Manual) Atypical Lymphs % Monocytes % (Manual) Platelet Estimate RBC Morphology Sodium Potassium Chloride Carbon Dioxide Anion Gap BUN Creatinine Estimated Creat Clear Estimated GFR Est GFR ( Amer) Glucose POC Glucose 366 H* 361 H* Calcium Total Bilirubin AST ALT Alkaline Phosphatase Total Protein Albumin Globulin Albumin/Globulin Ratio Preliminary micro results at discharge 10/28/18 18:00 Sputum Culture - Preliminary Sputum - Expectorated Sputum 10/28/18 17:05 Blood Culture - Preliminary Blood NO GROWTH AFTER 48 HOURS 10/28/18 17:05 Blood Culture - Preliminary Blood NO GROWTH AFTER 48 HOURS DS: Diagnosis - Discharge Diagnosis (1) Abscess Status: Acute (2) Pneumonia Status: Acute (3) Diabetes 1.5, managed as type 1 Status: Acute (4) Foraminal stenosis of lumbar region Status: Acute (5) Degenerative disc disease Status: Chronic (6) Tobacco use Status: Chronic Discharge Plan - Patient Discharge Instructions ACTIVITY: Continue current activity DIET: continue same diet Patient Instructions: DI for Pneumonia -- Adult, DI for Skin Abscess - Follow up Plan Follow up with: Kobe Dyer MD [Primary Care Provider] - 1 week Disposition: Home, Self-Correction Medications: Home Medications Medication Instructions Recorded Confirmed Type loratadine 10 mg tablet 10 mg PO DAILY #30 tab 10/24/18 10/28/18 Rx oxycodone 5 mg tablet 5 mg PO BID PRN #60 tab 10/24/18 10/28/18 Rx polyethylene glycol 3350 17 17 gm PO DAILY 10/24/18 10/29/18 History gram/dose oral powder Amlodipine Besylate [Amlodipine 10 mg PO DAILY 10/28/18 10/28/18 History 10mg Tab] Atorvastatin Calcium [Atorvastatin 10 mg PO DAILY 10/28/18 10/28/18 History 10mg Tab] Budesonide/Formoterol Fumarate 2 puff INHALATION BID 10/28/18 10/28/18 History [Symbicort] Fluticasone/Vilanterol [Breo 1 inh INHALATION DAILY 10/28/18 10/28/18 History Ellipta] Gabapentin [Gabapentin 300mg Cap] 300 mg PO TID 10/28/18 10/28/18 History glipiZIDE [Glipizide] 10 mg PO BID 10/28/18 10/28/18 History Insulin Aspart [Novolog Flexpen] 8 unit SQ TID 10/29/18 10/29/18 History Irbesartan [Avapro 75mg 75 mg PO DAILY 10/29/18 10/28/18 History tablet] hydroCHLOROthiazide [HCTZ 25mg 25 mg PO DAILY 10/29/18 10/28/18 History tab] levoFLOXacin [Levaquin 500mg 500 mg PO DAILY #5 tab 10/31/18 Rx tab] predniSONE [Deltasone 10mg tablet] 10 mg PO BID 5 Days #10 tab 10/31/18 Rx Prescriptions/Medication Reconciliation: New predniSONE [Deltasone 10mg tablet] 10 mg PO BID 5 Days #10 tab levoFLOXacin [Levaquin 500mg tab] 500 mg PO DAILY #5 tab Continued polyethylene glycol 3350 17 gram/dose oral powder 17 gm PO DAILY oxycodone 5 mg tablet 5 mg PO BID PRN #60 tab PRN Reason: pain loratadine 10 mg tablet 10 mg PO DAILY #30 tab glipiZIDE [Glipizide] 10 mg PO BID Fluticasone/Vilanterol [Breo Ellipta] 1 inh INHALATION DAILY Budesonide/Formoterol Fumarate [Symbicort] 2 puff INHALATION BID Atorvastatin Calcium [Atorvastatin 10mg Tab] 10 mg PO DAILY Amlodipine Besylate [Amlodipine 10mg Tab] 10 mg PO DAILY Irbesartan [Avapro 75mg tablet] 75 mg PO DAILY hydroCHLOROthiazide [HCTZ 25mg tab] 25 mg PO DAILY Gabapentin [Gabapentin 300mg Cap] 300 mg PO TID Insulin Aspart [Novolog Flexpen] 8 unit SQ TID
--- NOTE | 2018-10-31 15:44 | Discharge Summary ---
General - General Admission date:: 10/28/18 Discharge date: 10/31/18 HPI HPI: 63-year-old female presented to the ER with complaints of congested and coughing thick green sputum and shortness of breath for over a week and getting worse. Patient states no fever, no emesis, hx recent rupture and draining right groin abscess. Patient admitted for pneumonia. Will treat right groin abscess with Rocephin. Hospital Course Hospital Course: pt was placed on iv antibiotics, iv fluids and o2. chest x ray:IMPRESSION: Right middle lobe pneumonia. Recommend follow-up until clearing this patient with positive smoking history cta:IMPRESSION: 1. No evidence of pulmonary embolus, aortic aneurysm, or aortic dissection 2. 7 mm right apical nodule. There is a 9 mm groundglass opacity in the right middle lobe. Other smaller nodules are noted as well. Suggest [address] without and with contrast for follow-up. 3. COPD with mild centrilobular emphysema 4. Prominent right pericardial fat pad with atelectatic changes in the right middle lobe 5. Other nonacute findings as described above Will dc home per pt request, continue levaquin and steroids with close mo nitoring of glucose.follow up in office in 1 week Objective Vital signs: Temp Pulse Resp BP Pulse Ox 97.8 F 87 16 187/91 H 97 10/31/18 11:35 10/31/18 11:35 10/31/18 11:35 10/31/18 11:35 10/31/18 11:35 no acute distress - *Routine HEENT Exam Head: Present: normocephalic Eye: Present: PERRL ENT: Present: mucous membranes moist - *Routine Neck Exam Present: supple - *Routine Respiratory Exam Present: CTA bilaterally - *Routine Cardiovascular Exam Present: RRR - *Routine Abdominal Exam Present: soft, normoactive bowel sounds. Absent: tenderness - *Routine Extremities Exam Present: full ROM - *Routine Skin Exam Present: intact - *Routine Neurological Exam Present: alert, oriented X3 - Routine Psychiatric Exam Present: normal affect Results Labs on day of discharge: Labs from last 24 hours 10/31/18 10/31/18 10/31/18 05:50 05:50 05:25 WBC 12.5 H D RBC 3.70 L Hgb 11.1 L Hct 32.9 L MCV 89.0 MCH 30.0 MCHC 33.7 RDW 13.8 Plt Count 219 MPV 7.9 Neut % (Auto) 88.6 H Lymph % (Auto) 8.4 L [place] % (Auto) 2.9 Eos % (Auto) 0.1 Baso % (Auto) 0.0 L Neut # (Auto) 11.0 H Lymph # (Auto) 1.0 [place] # (Auto) 0.4 Eos # (Auto) 0.0 Baso # (Auto) 0.0 Total Counted 100 Neutrophils % (Manual) 88 H Band Neutrophils % 3.0 Lymphocytes % (Manual) 5 L Atypical Lymphs % 2.0 Monocytes % (Manual) 2 Platelet Estimate Normal RBC Morphology Normal Sodium 137 Potassium 3.7 Chloride 102 Carbon Dioxide 26 Anion Gap 12.7 BUN 13 Creatinine 0.91 Estimated Creat Clear 89 Estimated GFR 63 Est GFR ( Amer) 76 Glucose 441 H* D POC Glucose 457 H* Calcium 8.1 L Total Bilirubin 0.3 AST 31 ALT 63 Alkaline Phosphatase 151 H Total Protein 7.5 Albumin 2.9 L Globulin 4.6 H Albumin/Globulin Ratio 0.6 L 10/30/18 10/30/18 10/30/18 20:35 16:25 05:31 WBC RBC Hgb Hct MCV MCH MCHC RDW Plt Count MPV Neut % (Auto) Lymph % (Auto) [place] % (Auto) Eos % (Auto) Baso % (Auto) Neut # (Auto) Lymph # (Auto) [place] # (Auto) Eos # (Auto) Baso # (Auto) Total Counted Neutrophils % (Manual) Band Neutrophils % Lymphocytes % (Manual) Atypical Lymphs % Monocytes % (Manual) Platelet Estimate RBC Morphology Sodium Potassium Chloride Carbon Dioxide Anion Gap BUN Creatinine Estimated Creat Clear Estimated GFR Est GFR ( Amer) Glucose POC Glucose 350 H* 344 H* 366 H* Calcium Total Bilirubin AST ALT Alkaline Phosphatase Total Protein Albumin Globulin Albumin/Globulin Ratio 10/29/18 19:52 WBC RBC Hgb Hct MCV MCH MCHC RDW Plt Count MPV Neut % (Auto) Lymph % (Auto) [place] % (Auto) Eos % (Auto) Baso % (Auto) Neut # (Auto) Lymph # (Auto) [place] # (Auto) Eos # (Auto) Baso # (Auto) Total Counted Neutrophils % (Manual) Band Neutrophils % Lymphocytes % (Manual) Atypical Lymphs % Monocytes % (Manual) Platelet Estimate RBC Morphology Sodium Potassium Chloride Carbon Dioxide Anion Gap BUN Creatinine Estimated Creat Clear Estimated GFR Est GFR ( Amer) Glucose POC Glucose 361 H* Calcium Total Bilirubin AST ALT Alkaline Phosphatase Total Protein Albumin Globulin Albumin/Globulin Ratio Preliminary micro results at discharge 10/28/18 18:00 Sputum Culture - Preliminary Sputum - Expectorated Sputum 10/28/18 17:05 Blood Culture - Preliminary Blood NO GROWTH AFTER 48 HOURS 10/28/18 17:05 Blood Culture - Preliminary Blood NO GROWTH AFTER 48 HOURS - Additional Comments discussed pt with dr person all orders per raza DS: Diagnosis - Discharge Diagnosis (1) Abscess Status: Acute (2) Pneumonia Status: Acute (3) Diabetes 1.5, managed as type 1 Status: Acute (4) Foraminal stenosis of lumbar region Status: Acute (5) Degenerative disc disease Status: Chronic (6) Tobacco use Status: Chronic Discharge Plan - Patient Discharge Instructions ACTIVITY: Continue current activity DIET: continue same diet Patient Instructions: DI for Pneumonia -- Adult, DI for Skin Abscess - Follow up Plan Follow up with: Kobe Person MD [Primary Care Provider] - 1 week Disposition: Home, Self-[facility] Medications: Home Medications Medication Instructions Recorded Confirmed Type loratadine 10 mg tablet 10 mg PO DAILY #30 tab 10/24/18 10/28/18 Rx oxycodone 5 mg tablet 5 mg PO BID PRN #60 tab 10/24/18 10/28/18 Rx polyethylene glycol 3350 17 17 gm PO DAILY 10/24/18 10/29/18 History gram/dose oral powder Amlodipine Besylate [Amlodipine 10 mg PO DAILY 10/28/18 10/28/18 History 10mg Tab] Atorvastatin Calcium [Atorvastatin 10 mg PO DAILY 10/28/18 10/28/18 History 10mg Tab] Budesonide/Formoterol Fumarate 2 puff INHALATION BID 10/28/18 10/28/18 History [Symbicort 80-4.5 Mcg Inhaler] Fluticasone/Vilanterol [Breo 1 inh INHALATION DAILY 10/28/18 10/28/18 History Ellipta 100-25 Mcg INH] Gabapentin [Gabapentin 300mg Cap] 300 mg PO TID 10/28/18 10/28/18 History glipiZIDE [Glipizide] 10 mg PO BID 10/28/18 10/28/18 History Insulin Aspart [Novolog Flexpen] 8 unit SQ TID 10/29/18 10/29/18 History Irbesartan [Avapro 75mg 75 mg PO DAILY 10/29/18 10/28/18 History tablet] hydroCHLOROthiazide [HCTZ 25mg 25 mg PO DAILY 10/29/18 10/28/18 History tab] levoFLOXacin [Levaquin 500mg 500 mg PO DAILY #5 tab 10/31/18 Rx tab] predniSONE [Deltasone 10mg tablet] 10 mg PO BID 5 Days #10 tab 10/31/18 Rx Prescriptions/Medication Reconciliation: New predniSONE [Deltasone 10mg tablet] 10 mg PO BID 5 Days #10 tab levoFLOXacin [Levaquin 500mg tab] 500 mg PO DAILY #5 tab Continued polyethylene glycol 3350 17 gram/dose oral powder 17 gm PO DAILY oxycodone 5 mg tablet 5 mg PO BID PRN #60 tab PRN Reason: pain loratadine 10 mg tablet 10 mg PO DAILY #30 tab glipiZIDE [Glipizide] 10 mg PO BID Fluticasone/Vilanterol [Breo Ellipta 100-25 Mcg INH] 1 inh INHALATION DAILY Budesonide/Formoterol Fumarate [Symbicort 80-4.5 Mcg Inhaler] 2 puff INHALATION BID Atorvastatin Calcium [Atorvastatin 10mg Tab] 10 mg PO DAILY Amlodipine Besylate [Amlodipine 10mg Tab] 10 mg PO DAILY Irbesartan [Avapro 75mg tablet] 75 mg PO DAILY hydroCHLOROthiazide [HCTZ 25mg tab] 25 mg PO DAILY Gabapentin [Gabapentin 300mg Cap] 300 mg PO TID Insulin Aspart [Novolog Flexpen] 8 unit SQ TID
== END 2018-10-31 13:09 | disposition home or self-care (01) ==
LOC: ER 16:34 → 2ND 16:34
PROVIDERS: ADMIT Internal Medicine Adolescent Medicine; ATTEND Emergency Medicine
CPT/HCPCS: 36415; 71010; 71045; 71275; 80048; 80053; 82962; 83605; 84484; 85007; 85025; 85378; 87040; 87070; 87077; 87186; 87205; 93005; 96365; 96366; 96375; 99284; G0378; J1956

== ENCOUNTER → 2018-11-23 18:40 | Outpatient (CLI) | payer MEDICAID, SELFPAY ==
[2018-11-23 19:31] LABS: Amphetamine/Metha Screen,Urine Negative ng/mL (<1000); Barbiturates Screen,Urine Negative ng/mL (<200); Benzodiazepines Screen,Urine Negative ng/mL (<200); Cannabinoid Screen,Urine Negative ng/mL (<50); Cocaine Screen,Urine Negative ng/mL (<300); Methadone Screen,Urine Negative ng/mL (<300); Opiate Screen,Urine Positive ng/mL (<300); Phencyclidine Screen,Urine Negative ng/mL (<25)
== END ==
PROVIDERS: Visit Provider Emergency Medicine
DX: Z79.891 Long term (current) use of opiate analgesic (principal)
CPT/HCPCS: 80305

== ENCOUNTER → 2018-12-12 14:26 | Outpatient (CLI) | payer MEDICAID, SELFPAY ==
--- NOTE | 2018-12-12 14:34 | XR_ITS ---
XR shoulder LT min 2V HISTORY: ITS.REASON: left shoulder pain ORDERING PHYSICIAN: Baylee Diaz MD PATIENT AGE: 63 years Comparison: None FINDINGS: No fracture or dislocation. No lytic or blastic change. There is normal mineralization. The joint spaces are well-preserved. No significant degenerative/arthritic changes. No erosive changes evident. IMPRESSION: Negative, no acute finding
== END ==
PROVIDERS: PCP Emergency Medicine; Visit Provider Orthopaedic Surgery
DX: M25.512 Pain in left shoulder (principal)
CPT/HCPCS: 73030

== ENCOUNTER → 2019-01-23 13:47 | Outpatient (CLI) | payer MEDICAID, SELFPAY ==
[2019-01-23 15:46] LABS: Amphetamine/Metha Screen,Urine Negative ng/mL (<1000); Barbiturates Screen,Urine Negative ng/mL (<200); Benzodiazepines Screen,Urine Positive ng/mL (<200); Cannabinoid Screen,Urine Negative ng/mL (<50); Cocaine Screen,Urine Negative ng/mL (<300); Methadone Screen,Urine Negative ng/mL (<300); Opiate Screen,Urine Positive ng/mL (<300); Phencyclidine Screen,Urine Negative ng/mL (<25)
[2019-01-31 07:18] LABS: Alprazolam Negative (Cutoff=100); Benzodiazepines Negative ng/mL (Cutoff=100); Clonazepam Negative (Cutoff=100); Flurazepam Negative (Cutoff=100); Lorazepam Negative (Cutoff=100); Midazolam Negative (Cutoff=100); Temazepam Negative (Cutoff=100); Triazolam Negative (Cutoff=100)
== END ==
PROVIDERS: Visit Provider Emergency Medicine
DX: Z79.899 Other long term (current) drug therapy (principal)
CPT/HCPCS: 80305; 80346

== ENCOUNTER → 2019-02-14 12:47 | Outpatient (CLI) | payer MEDICAID, SELFPAY ==
--- NOTE | 2019-02-14 12:48 | MR_ITS ---
PROCEDURE: MR SHOULDER LT WO CON CLINICAL INDICATION: Lt shoulder pain COMPARISON: from 12/12/2018 TECHNIQUE: Routine multiplanar multi echo sequences are performed without gadolinium enhancement. FINDINGS: There is mild thickening of the supraspinatus tendon distally consistent with tendinopathy/tendinosis. A definite tear is not identified. The infraspinatus tendon has an unremarkable appearance as does the teres minor and subscapularis. Small amount of fluid is present in the subcoracoid recess. There is mild subacromial stenosis with a low-lying acromion. Hypertrophic changes are present at the acromioclavicular joint causing some impingement upon the superior aspect of the musculotendinous junction of the supraspinatus tendon. No obvious labral tear. The bicipital tendon is in place with a small amount of fluid in the bicipital tendon sheath. IMPRESSION: Acromioclavicular arthropathy with subacromial stenosis and tendinopathy/tendinosis of the supraspinatus tendon without definite tear. Subcoracoid bursitis Dictated by: Brad Horta MD 02/16/2019 11:36 Signed by: <Electronically signed by Brad Horta MD in [place]> 02/16/2019 11:36
== END ==
PROVIDERS: PCP Emergency Medicine; Visit Provider Orthopaedic Surgery
DX: M25.512 Pain in left shoulder (principal)
CPT/HCPCS: 73221

== ENCOUNTER → 2019-03-01 11:00 | Outpatient (CLI) | payer MEDICAID, SELFPAY ==
--- NOTE | 2019-03-01 11:02 | MM_ITS ---
PROCEDURE: MM DIG SCREENING MAMM BI W/CAD CLINICAL INDICATION: screening No history is provided COMPARISON: MM MAMMO DIGITAL SCREENING W CAD BILAT from 01/23/2013 MM MAMMO DIGITAL DIAGNOSTIC W CAD BILAT from 11/25/2015 [facility] MM Dig screening mamm BI w/CAD from 08/31/2017 TECHNIQUE: Standard CC and MLO images were obtained. R2 CAD reviewed. FINDINGS: Scattered fibroglandular densities are seen in both breasts. There are couple of benign-appearing microcalcifications subareolar region right breast. There is a stable tiny nodular density deep within the right breast near the axillary tail. There is no suspicious lesion and no suspicious microcalcifications. IMPRESSION: Fibrofatty parenchyma with no suspicious lesions seen BI-RAD Category: 2 Benign Finding(s) FOLLOW-UP: 1YR 1 Year Follow-up (A letter has been sent to the patient regarding results of the study.) Dictated by: Dr. Phani Ellington MD 03/05/2019 17:[address] Phani Ellington MD in [place] 03/05/2019 17:10
== END ==
PROVIDERS: PCP Emergency Medicine; Visit Provider Emergency Medicine
DX: Z12.31 Encounter for screening mammogram for malignant neoplasm of breast (principal)
CPT/HCPCS: 77067

== ENCOUNTER → 2019-03-24 14:09 | Outpatient (CLI) | payer MEDICAID, SELFPAY ==
[2019-03-24 16:21] LABS: Amphetamine/Metha Screen,Urine Negative ng/mL (<1000); Barbiturates Screen,Urine Negative ng/mL (<200); Benzodiazepines Screen,Urine Negative ng/mL (<200); Cannabinoid Screen,Urine Negative ng/mL (<50); Cocaine Screen,Urine Negative ng/mL (<300); Methadone Screen,Urine Negative ng/mL (<300); Opiate Screen,Urine Negative ng/mL (<300); Phencyclidine Screen,Urine Negative ng/mL (<25)
[2019-04-02 16:26] LABS: Oxycodone Positive (.); Oxymorphone Negative (Cutoff=100)
[2019-04-02 17:19] LABS: Oxycodone Confirm 905 ng/mL (Cutoff=100)
== END ==
PROVIDERS: Visit Provider Emergency Medicine
DX: Z79.899 Other long term (current) drug therapy (principal); Z79.891 Long term (current) use of opiate analgesic
CPT/HCPCS: 80305; 80365

== ENCOUNTER → 2019-04-24 13:40 | Outpatient (CLI) | payer MEDICAID, SELFPAY ==
[2019-04-24 14:53] LABS: Alanine Aminotransferase 62 U/L (12-78); Albumin Level 3.8 gm/dL (3.4-5.0); Albumin/Globulin Ratio 0.9 (1.1-1.8); Alkaline Phosphatase 133 U/L (46-116); Anion Gap 15.4 mEq/L (5-15); Aspartate Amino Transferase 54 U/L (15-37); Bilirubin,Total 0.4 mg/dL (0.2-1.0); Blood Urea Nitrogen 25 mg/dL (7-18); Calcium 9.5 mg/dL (8.5-10.1); Carbon Dioxide 24 mmol/L (21.0-32.0); Chloride 98 mmol/L (98-107); Cholesterol 119 mg/dL (140-200); Creatinine,Serum 1.27 mg/dL (0.55-1.02); Estimated Glomerular Filt Rate 43 ml/min (>60); Free T4 (Free Thyroxine) 1.43 ng/dl (0.76-1.46); GFR (African American) 52 ML/MIN (>60); Globulin 4.1 gm/dl (1.3-3.2); Glucose 249 mg/dL (74-106); HDL Cholesterol 40 mg/dL (29-89); LDL Cholesterol 56 mg/dL (0-130); Potassium 3.4 mmoL/L (3.5-5.1); Sodium 134 mmol/L (136-145); Thyroid Stimulating Hormone 2.08 uIU/ml (0.358-3.740); Total Protein,Serum 7.9 gm/dL (6.4-8.2); Triglycerides 113 mg/dL (30-200); VLDL Cholesterol 23 mg/dL (0-40)
[2019-04-24 16:22] LABS: Hemoglobin A1C 6.2 % (0.0-7.0)
[2019-04-24 16:59] LABS: Amphetamine/Metha Screen,Urine Negative ng/mL (<1000); Barbiturates Screen,Urine Negative ng/mL (<200); Benzodiazepines Screen,Urine Negative ng/mL (<200); Cannabinoid Screen,Urine Negative ng/mL (<50); Cocaine Screen,Urine Negative ng/mL (<300); Methadone Screen,Urine Negative ng/mL (<300); Opiate Screen,Urine Negative ng/mL (<300); Phencyclidine Screen,Urine Negative ng/mL (<25)
[2019-04-24 17:04] LABS: Basophils # 0.1 K/mm3 (0-0.2); Basophils % 0.6 % (0.1-2.0); Eosinophils # 0.3 K/mm3 (0.0-0.4); Eosinophils % 2.4 % (0.1-12.0); Hematocrit 46.1 % (37.0-47.0); Hemoglobin 15.8 g/dL (12.2-16.2); Lymphocytes # 2.8 K/mm3 (0.7-4.5); Lymphocytes % 26.2 % (10-50); Mean Corpuscular HGB Conc 34.3 g/dL (31.8-35.4); Mean Corpuscular Hemoglobin 30.9 pg (27.0-31.2); Mean Corpuscular Volume 90.2 fl (81-99); Mean Platelet Volume 9.9 fl (7.4-10.4); Monocytes # 0.4 K/mm3 (0.1-1.0); Monocytes % 3.9 % (1.7-9.3); Neutrophils # 7.1 K/mm3 (1.8-7.8); Platelet Count 261 K/mm3 (142-424); Red Blood Count 5.11 M/mm3 (4.20-5.40); Red Cell Distribution Width 13.5 % (11.5-17.5); White Blood Count 10.6 K/mm3 (4.8-10.8)
[2019-04-25 09:29] LABS: Vitamin D 25 Hydroxy 33.3 ng/mL (30.0-100.0)
== END ==
PROVIDERS: Visit Provider Emergency Medicine
DX: Z79.899 Other long term (current) drug therapy (principal); E10.9 Type 1 diabetes mellitus without complications; Z79.4 Long term (current) use of insulin
CPT/HCPCS: 80053; 80061; 80305; 82652; 83036; 84439; 84443; 85025

== ENCOUNTER → 2019-05-04 12:13 | Outpatient (CLI) | payer MEDICAID, SELFPAY ==
--- NOTE | 2019-05-04 12:17 | XR_ITS ---
PROCEDURE: XR CHEST 2V CLINICAL HISTORY: cough COMPARISON: CXR2V XR chest 2V from 06/22/2017 CXR2V XR chest 2V from 08/31/2017 FINDINGS: The cardiomediastinal silhouette and pulmonary vascularity are within normal limits. The lungs are clear without infiltrates, suspicious nodules, or pleural effusions. No acute bony abnormalities. IMPRESSION: No acute findings. Dictated by: Brad Horta MD 05/04/2019 14:55 Electronically signed by Brad Horta MD in [place] 05/04/2019 14:55
== END ==
PROVIDERS: PCP Emergency Medicine; Visit Provider Nurse Practitioner Family
DX: R05 Cough (principal)
CPT/HCPCS: 71046

== ENCOUNTER → 2019-06-26 14:50 | Outpatient (CLI) | payer MEDICAID, SELFPAY ==
[2019-06-26 16:59] LABS: Amphetamine/Metha Screen,Urine Negative ng/mL (<1000); Barbiturates Screen,Urine Negative ng/mL (<200); Benzodiazepines Screen,Urine Negative ng/mL (<200); Cannabinoid Screen,Urine Negative ng/mL (<50); Cocaine Screen,Urine Negative ng/mL (<300); Methadone Screen,Urine Negative ng/mL (<300); Opiate Screen,Urine Negative ng/mL (<300); Phencyclidine Screen,Urine Negative ng/mL (<25)
== END ==
PROVIDERS: Visit Provider Nurse Practitioner Family
DX: Z79.899 Other long term (current) drug therapy (principal)
CPT/HCPCS: 80305

== ENCOUNTER → 2019-07-25 13:27 | Outpatient (CLI) | payer MEDICAID, SELFPAY ==
[2019-07-25 15:16] LABS: Amphetamine/Metha Screen,Urine Negative ng/mL (<1000); Barbiturates Screen,Urine Negative ng/mL (<200); Benzodiazepines Screen,Urine Positive ng/mL (<200); Cannabinoid Screen,Urine Positive ng/mL (<50); Cocaine Screen,Urine Negative ng/mL (<300); Methadone Screen,Urine Negative ng/mL (<300); Opiate Screen,Urine Negative ng/mL (<300); Phencyclidine Screen,Urine Negative ng/mL (<25)
[2019-08-02 15:09] LABS: Alprazolam Negative (Cutoff=100); Benzodiazepines Positive ng/mL (Cutoff=100); Clonazepam Negative (Cutoff=100); Flurazepam Negative (Cutoff=100); Lorazepam Negative (Cutoff=100); Midazolam Negative (Cutoff=100); Temazepam Positive (.); Triazolam Negative (Cutoff=100)
[2019-08-02 16:28] LABS: Opiates Negative (Cutoff=100)
== END ==
PROVIDERS: Visit Provider Emergency Medicine
DX: Z79.899 Other long term (current) drug therapy (principal)
CPT/HCPCS: 80305; 80346; 80361; 80365; G0480

== ENCOUNTER → 2019-08-28 17:03 | Outpatient (CLI) | payer MEDICAID, SELFPAY ==
[2019-08-28 17:58] LABS: Basophils # 0.1 K/mm3 (0-0.2); Basophils % 0.5 % (0.1-2.0); Eosinophils # 0.1 K/mm3 (0.0-0.4); Eosinophils % 0.6 % (0.1-12.0); Hematocrit 42.8 % (37.0-47.0); Hemoglobin 14.6 g/dL (12.2-16.2); Lymphocytes # 4.4 K/mm3 (0.7-4.5); Lymphocytes % 32.6 % (10-50); Mean Corpuscular HGB Conc 34.1 g/dL (31.8-35.4); Mean Corpuscular Hemoglobin 31.1 pg (27.0-31.2); Mean Corpuscular Volume 91.4 fl (81-99); Mean Platelet Volume 8.4 fl (7.4-10.4); Monocytes # 0.6 K/mm3 (0.1-1.0); Monocytes % 4.7 % (1.7-9.3); Neutrophils # 8.4 K/mm3 (1.8-7.8); Neutrophils % 61.6 % (37.0-80.0); Platelet Count 310 K/mm3 (142-424); Red Blood Count 4.68 M/mm3 (4.20-5.40); Red Cell Distribution Width 12.5 % (11.5-17.5); White Blood Count 13.6 K/mm3 (4.8-10.8)
[2019-08-28 18:49] LABS: Chloride 105 mmol/L (98-107)
[2019-08-28 18:50] LABS: Potassium 3.7 mmoL/L (3.5-5.1); Sodium 141 mmol/L (136-145)
[2019-08-28 18:52] LABS: Blood Urea Nitrogen 12 mg/dl (7-17); Estimated Glomerular Filt Rate 73 ml/min (>60); GFR (African American) 88 ML/MIN (>60)
[2019-08-28 18:53] LABS: Alanine Aminotransferase 71 U/L (12-78); Albumin Level 4.3 g/dl (3.5-5.0); Albumin/Globulin Ratio 1.3 (1.1-1.8); Alkaline Phosphatase 110 U/L (38-126); Anion Gap 12.7 mEq/L (5-15); Aspartate Amino Transferase 61 U/L (14-36); Bilirubin,Total 0.4 mg/dl (0.2-1.3); Calcium 9.6 mg/dl (8.4-10.2); Carbon Dioxide 27 mmol/L (22.0-30.0); Chol/HDL Ratio 3.1 (1-3.5); Cholesterol 150 mg/dl (140-200); Globulin 3.2 g/dL (1.3-3.2); Glucose 105 mg/dl (74-100); HDL Cholesterol 48 mg/dl (40-60); Total Protein,Serum 7.5 g/dl (6.3-8.2); Triglycerides 138 mg/dl (30-150); VLDL Cholesterol 28 mg/dL (0-40)
[2019-08-28 19:05] LABS: Direct LDL Cholesterol 71.94 mg/dL (100-129)
[2019-08-28 19:11] LABS: T4 (Thyroxine) 12.5 ug/dl (5.53-11.0)
[2019-08-28 19:24] LABS: Thyroid Stimulating Hormone 1.22 uIU/mL (0.465-4.68)
[2019-08-28 19:32] LABS: Hemoglobin A1C 6.5 % (4.0-6.0)
[2019-08-30 16:09] LABS: Vitamin D 25 Hydroxy 27.6 ng/mL (30.0-100.0)
[2019-08-30 16:10] LABS: Microalbumin, Urine 9.6 ug/mL (Not Estab.)
== END ==
PROVIDERS: Visit Provider Emergency Medicine
DX: E10.9 Type 1 diabetes mellitus without complications (principal); E55.9 Vitamin D deficiency, unspecified; Z79.4 Long term (current) use of insulin
CPT/HCPCS: 80053; 80061; 82043; 82652; 83036; 84436; 84443; 85025